=== PATIENT | female | born 1955 | race Caucasian/White ===

== ENCOUNTER → 2016-03-16 | Outpatient (CLI) | payer OTHER ==
[2016-03-16 13:46] LABS: HEMOGLOBIN A1C 7.65 % (4.2-6.0); MEAN BLOOD GLUCOSE (CALC) 168.745 mg/dL
[2016-03-16 13:47] LABS: CREATININE, URINE 80.3 MG/DL (15-500)
== END ==
LOC: LAB 12:47
PROVIDERS: ATTEND Internal Medicine
DX: E11.9 Type 2 diabetes mellitus without complications (principal); Z79.4 Long term (current) use of insulin
CPT/HCPCS: 36415; 82043; 83036

== ENCOUNTER → 2016-04-29 | Outpatient (CLI) | payer OTHER ==
--- NOTE | 2016-04-29 16:19 | DI ---
PA /LATERAL CHEST X-RAY, 04/29/2016 3:38 PM : Clinical History: Anterior chest pain over the xiphoid. Previous Exam: 11/26/2015. There is no acute soft tissue or bony abnormality. Heart size is normal. Lungs are clear. Mediastinal structures are normal. There are no pulmonary nodules. Reading: Normal chest x-ray. There has been no interval change.
== END ==
LOC: MOB RAD 14:56
PROVIDERS: ATTEND Nurse Practitioner
DX: R07.89 Other chest pain (principal); H92.02 Otalgia, left ear; W00.0XXA Fall on same level due to ice and snow, initial encounter
CPT/HCPCS: 71020

== ENCOUNTER → 2016-05-06 | Outpatient (CLI) | payer OTHER | LOC: MMPC 09:00 | PROVIDERS: ATTEND Nurse Practitioner Family | DX: L23.9 Allergic contact dermatitis, unspecified cause (principal) | CPT/HCPCS: 99213; G0463 ==

== ENCOUNTER → 2016-06-16 | Outpatient (CLI) | payer OTHER ==
[2016-06-16 12:14] LABS: HEMOGLOBIN A1C 6.73 % (4.2-6.0)
[2016-06-16 12:27] LABS: CREATININE, URINE 72.2 MG/DL (15-500)
== END ==
LOC: LAB 11:47
PROVIDERS: ATTEND Internal Medicine
DX: E11.9 Type 2 diabetes mellitus without complications (principal); Z79.4 Long term (current) use of insulin; E03.9 Hypothyroidism, unspecified; K31.84 Gastroparesis; G89.29 Other chronic pain; Z96.651 Presence of right artificial knee joint
CPT/HCPCS: 36415; 82043; 83036; 99214; G0463

== ENCOUNTER → 2016-07-27 | Outpatient (CLI) | payer OTHER | LOC: MMPC 11:11 | PROVIDERS: ATTEND Nurse Practitioner | DX: G47.33 Obstructive sleep apnea (adult) (pediatric) (principal) | CPT/HCPCS: 99213; G0463 ==

== ENCOUNTER 2016-08-07 08:18 | Emergency (ER) | payer OTHER ==
[2016-08-07] MEDS ORDERED: Sodium Chloride 0.9% 1,000 ML PRIMARY IV ONE (08:30)
[2016-08-07] MEDS ORDERED: ONDANSETRON 4 MG/2 ML VIAL IVP ONE (08:30)
[2016-08-07] MEDS ORDERED: Pantoprazole Inj 40 MG in Normal Saline Flush 10 ML IVP ONE (08:30)
[2016-08-07] MEDS ORDERED: NORMAL SALINE 10 ML SYRINGE FLUSH IVP PRN (08:30)
--- NOTE | 2016-08-07 08:38 | PDOC ---
Abdomen/Flank HPI - General Chief Complaint: Nausea / Vomiting / Diarrhea Stated Complaint: diarrhea Date Seen by Provider: 08/07/16 Time Seen by Provider: 08:25 Source: POSITIVE: Patient Exam Limitations: POSITIVE: No limitations Nurse's Notes Reviewed & Considered: Yes - History of Present Illness Initial Comments: The patient is a 61-year-old female who presents to the emergency department with complaints of diarrhea and abdominal pain. She states that she had onset of diarrhea on Tuesday of last week. 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 Her diarrhea continued and she contacted their office again yesterday. They recommended that if she had continued diarrhea and abdominal pain that she should be evaluated in the emergency room. She has a history of gastroparesis as well as hiatal hernia and some type of colitis by her account. She states that she has had frequent liquid stool especially if she tries to eat or drink anything. She also has increased abdominal pain which is mostly in the epigastric region with cramping lower abdominal pain as well. She also has some pain that radiates through to her back. She denies blood in the stool and has not had any nausea or vomiting. She denies urinary symptoms. She has not had any fever that she is aware of. She has been drinking fluids however they seem to be going right through her. She has had previous cholecystectomy 20 years ago, appendectomy at age 13 and a complete hysterectomy. - Patient Home Medications Home Medications: Home Medications Incontinence Pad,Liner,Disp [Poise Pads] 1 each PRN #1 box 05/08/12 Cpap 1 unit FELICITAS QHS #1 unit 11/11/14 Diclofenac Sodium [Voltaren] 2 gm TOPICAL QID tube 06/10/15 Oxybutynin Chloride [Oxybutynin Chloride ER] 1 tab PO QD #90 tab 08/25/15 Meloxicam 1 tab PO DAILY #90 tab 09/02/15 Ibuprofen 1 tab PO QPM PRN #0 tab 10/16/15 Insulin Aspart [Novolog Flexpen] 3 - 16 unit SUBCUT ACHS #0 unit 10/21/15 [place], Insulin Disposable [Novofine 32] 1 each 5XD #150 unit 11/06/15 Blood-Glucose Meter [Onetouch Ultra2] 1 each TID #100 unit 11/20/15 Blood Sugar Diagnostic [Blood Glucose Test Strip] 1 each MC TID #100 strip 11/26 Lancets [Onetouch Lancets] 1 each MC BID #100 each 11/27/15 Lact Cmb2/S.thermophl/Bif Cmb1 [Vsl#3 Capsule] 1 each PO QPM cap 12/31/15 Clonazepam 1 tab PO BID #180 tab 01/02/16 Estradiol [Vagifem] 10 mcg VAGINAL 2XW #3 box 01/02/16 Linagliptin [Tradjenta] 5 mg PO DAILY #30 tab 01/13/16 Sumatriptan Succinate 1 tab PO QD PRN #6 tab 02/27/16 Linaclotide [Linzess] 145 mcg PO DAILY cap 03/16/16 Risperidone 0.5 mg PO BID #60 tab 03/16/16 Lisinopril 1 tab PO DAILY #90 tab 05/05/16 Ropinirole HCl [Requip Xl] 2 mg PO QHS #90 tab 05/05/16 Triamcinolone Acetonide 1 applic TP BID PRN #15 gm 05/06/16 Gabapentin 1 cap PO TID #90 cap 06/07/16 Loratadine [Allergy] 1 tab PO DAILY #90 tab 06/07/16 Zolpidem Tartrate 5 mg PO DAILY #90 tab 06/07/16 Cyclobenzaprine HCl 1 tab PO TID #270 tab 06/16/16 Duloxetine HCl 1 cap PO BID #180 cap 06/16/16 Furosemide 1 tab PO DAILY #90 tab 06/16/16 Metformin HCl 1 tab PO BID #180 tab 06/16/16 Morphine Sulfate [Morphine Sulfate Cr] 1 tab PO Q12H #60 tab 06/16/16 Oxycodone HCl 1 tab PO Q6H PRN #120 tab 06/16/16 Pantoprazole Sodium 1 tab PO BID #180 tab 06/16/16 Potassium Chloride 1 tab PO QD #90 tab 06/16/16 Simvastatin 1 tab PO QHS #90 tab 06/16/16 Insulin Detemir [Levemir Flextouch] 20 unit SQ QHS #4 vial 07/27/16 Levothyroxine Sodium [Synthroid] 1 tab PO DAILY #90 tab 07/27/16 - Patient Allergies Allergies/Adverse Reactions: Allergies Allergy/AdvReac Type Severity Reaction Status Date / Time latex Allergy Intermediate NOT Unverified 08/07/16 08:35 APPLICABLE adhesive Allergy Mild rash Unverified 08/07/16 08:35 Penicillins Allergy Mild RASH Unverified 08/07/16 08:35 ADHESIVES Allergy Intermediate RASH Uncoded 07/27/16 16:02 silver *RETIRED-12/16/14 Allergy Unknown NOT Uncoded 07/27/16 16:02 APPLICABLE silver AdvReac Unknown NOT Uncoded 08/07/16 08:35 APPLICABLE Past Medical History - heen HEENT History: Denies History, Other (please comment) Additional HEENT History: WEARS GLASSES Cardiovascular History: Hypertension, Hyperlipidemia Additional Cardiovasular History: 1ST DEGREE HEART BLOCK Respiratory History: Sleep Apnea, Home CPAP Use Additional Respiratory History: WEARS CPAP Gastrointestinal History: GERD, Irritable Bowel Syndrome Additional Gastrointestinal History: CONSTIPATION/ HEMORRHOIDS Genitourinary History: Recurrent UTI, Incontinence Endocrine History: Type 2 Diabetes (insulin), Hypothyroidism Musculoskeletal History: Arthritis, Fibromyalgia, Back Pain, Back Injury Prosthesis or Implant: Yes (RIGHT TOTAL KNEE) Neurological History: Parkinson's, Migraines, Motion Sickness Blood Disorders: Denies History Psychiatric History: Depression, Anxiety Disorders History of Sexually Transmitted Diseases: No Cancer History: Denies History History of MDRO: No History of Other Communicable Diseases: No Alcohol Use: None Substance Use Type: None, Opiate Pain Medication Previous Surgical History: Yes Type / Date of Surgery: APPY/ BLADDER SX/ CTR/ GABO/ HYST/ OOPHORECTOMY/ RIGHT KNEE SCOPE/RIGHT TOTAL KNEE/ RHIZOTOMY/ TONSILLECTOMY/ COLONOSCOPY/EGD Anesthesia Reactions: No Malignant Hyperthermia: No Significant Family History: Heart disease, COPD, Hypertension Past Medical History Reviewed: Reviewed - No Changes ROS - Limitations ROS Limitations: No Limitations Constitution: REPORTS: Chills. DENIES: Fever Cardiovascular: REPORTS: Denies Cardiac Symptoms Respiratory: REPORTS: Denies Resp Symptoms Neurological: REPORTS: Denies Neuro Symptoms Gastrointestinal: REPORTS: Abdominal Pain, Diarrhea. DENIES: Vomitting, Black Stools, Bloody Stools, Constipation Endocrine: REPORTS: Other (Weak in general) Musculoskeletal: REPORTS: Denies MS Symptoms Genitourinary: REPORTS: Denies Symptoms Eyes: REPORTS: Denies Symptoms ENT: REPORTS: Denies Symptoms Skin: DENIES: Rash Abdominal/Flank Pain PE - General Appearance General Appearance: POSITIVE: Alert, Cooperative, No Acute Distress - HEENT HEENT: POSITIVE: Head Inspection Nml, Eyes Inspection Nml, Nose Inspection Nml, Pharynx Inspect. Nml, Dry Mucous Membranes - Neck Neck: POSITIVE: Normal Inspection. NEGATIVE: Lymphadenopathy - Respiratory Respiratory: POSITIVE: No Respiratory Distress, Breath Sounds Normal - Cardiovascular Cardiovascular: POSITIVE: Regular Rate and Rhythm, Heart Sounds Normal Peripheral Pulses: Dorsalis-pedis (R): 2+, Dorsalis-pedis (L): 2+ - Abdomen Abdomen: Soft: (All Quadrants), Normal Bowel Sounds: (All Quadrants), No Distention: (All Quadrants) Additional Abdominal Details: She does have tenderness primarily in the epigastric as well as right lower abdomen, no guarding or rebound tenderness, no palpable mass - Back Back: NEGATIVE: CVA Tenderness (R), CVA Tenderness (L) - Skin Skin: POSITIVE: Intact, No Rash - Extremities Extremity: Normal ROM: (All Extremities), Normal Inspection: (All Extremities) Abdomen Progress - Results Reviewed by me Lab Results:: Laboratory Results 08/07/16 Range/Units 08:44 WBC 5.76 (4.8-10.8) 10^3/uL RBC 4.58 (4.20-5.40) 10^6/uL Hgb 12.9 (12.0-16.0) g/dL Hct 38.0 (37.0-47.0) % MCV 83.0 (81-99) FL MCH 28.2 (27-31) PG MCHC 33.9 (33-37) g/dL RDW Std Deviation 38.4 L (39-50) fL RDW Coeff of Asif 12.9 (11.5-14.5) % Plt Count 315 (140-350) 10*3/uL MPV 8.5 (7.4-12.2) FL Immature Gran % (Auto) 0.2 (0-5) % Neut % (Auto) 62.0 (50-80) % Lymph % (Auto) 29.2 (10-50) % [place] % (Auto) 6.4 (5-15) % Eos % (Auto) 1.9 (0-8) % Baso % (Auto) 0.3 (0-1) % Immature Gran # (Auto) 0.01 10*3/UL Neut # (Auto) 3.57 10*3/UL Lymph # (Auto) 1.68 10*3/uL [place] # (Auto) 0.37 (0.3-0.8) 10*3/UL Eos # (Auto) 0.11 10*3/UL Baso # (Auto) 0.02 10*3/UL WBC Morphology Comment Normal morphology (NORM) Plt Morphology Comment Normal morphology (NORM) RBC Morph Comment Normal morphology (NORM) - Patient's Progress MDM / ED Course: An IV was established and she received a 1 L bolus of normal saline. She also received Zofran 4 mg IV and Protonix 40 mg IV. Lab work, stool studies, urinalysis and CT scan of the abdomen and pelvis are ordered and are pending. Patient care is transferred to Dr. Edward at 9:00 AM. Patient Care Time - Estimated PCT Patient Care Time (In Minutes): 15 Vital Signs - VS Reviewed Vital Signs Reviewed: Yes (written nursing documentation reviewed) Discharge Clinical Impression: Abdominal pain, Diarrhea Condition: Fair
[2016-08-07 08:51] LABS: BASOPHILS # (AUTO) 0.02 10*3/UL; BASOPHILS % (AUTO) 0.3 % (0-1); EOSINOPHILS # (AUTO) 0.11 10*3/UL; EOSINOPHILS % (AUTO) 1.9 % (0-8); HEMOGLOBIN 12.9 g/dL (12.0-16.0); LYMPHOCYTES # (AUTO) 1.68 10*3/uL; MEAN CORPUSCULAR HEMOGLOBIN 28.2 PG (27-31); MEAN CORPUSCULAR HGB CONC 33.9 g/dL (33-37); MEAN PLATELET VOLUME 8.5 FL (7.4-12.2); MONOCYTES # (AUTO) 0.37 10*3/UL (0.3-0.8); MONOCYTES % (AUTO) 6.4 % (5-15); NEUTROPHILS # (AUTO) 3.57 10*3/UL; RED BLOOD COUNT 4.58 10^6/uL (4.20-5.40)
[2016-08-07 08:57] LABS: PLATELET MORPHOLOGY COMMENT NORMAL MORPHOLOGY (NORM); RBC MORPHOLOGY COMMENT NORMAL MORPHOLOGY (NORM); WBC MORPHOLOGY COMMENT NORMAL MORPHOLOGY (NORM)
[2016-08-07 09:05] LABS: BLOOD UREA NITROGEN 5 mg/dL (7-22); BUN/CREATININE RATIO 8.33 (6-20); C-REACTIVE PROTEIN 5.1 mg/dL (0.0-0.9); CALCIUM 8.9 mg/dL (8.7-10.7); EST GLOMERULAR FILTRATION > 60 (>60 ml/min/1.73m(2)); LIPASE 34 IU/L (23-300); MAGNESIUM 1.6 mg/dL (1.6-2.4)
--- NOTE | 2016-08-07 09:10 | PDOC ---
Transfer of Care - Care Accepted Time Care Transferred: 09:08 Report from Transferring Physician Received: Yes MDM / ED Course: I received care of Ms Gurjit Mary from Dr Woodruff, pending results of an abdominal CT scan, labs, and symptom control. For further details, please see his H+P from this same date. Home Medications: Home Medications Incontinence Pad,Liner,Disp [Poise Pads] 1 each MC PRN #1 box 05/08/12 Cpap 1 unit FELICITAS QHS #1 unit 11/11/14 Diclofenac Sodium [Voltaren] 2 gm TOPICAL QID tube 06/10/15 Oxybutynin Chloride [Oxybutynin Chloride ER] 1 tab PO QD #90 tab 08/25/15 Meloxicam 1 tab PO DAILY #90 tab 09/02/15 Ibuprofen 1 tab PO QPM PRN #0 tab 10/16/15 Insulin Aspart [Novolog Flexpen] 3 - 16 unit SUBCUT ACHS #0 unit 10/21/15 [place], Insulin Disposable [Novofine 32] 1 each MC 5XD #150 unit 11/06/15 Blood-Glucose Meter [Onetouch Ultra2] 1 each MC TID #100 unit 11/20/15 Blood Sugar Diagnostic [Blood Glucose Test Strip] 1 each MC TID #100 strip 11/26 Lancets [Onetouch Lancets] 1 each MC BID #100 each 11/27/15 Lact Cmb2/S.thermophl/Bif Cmb1 [Vsl#3 Capsule] 1 each PO QPM cap 12/31/15 Clonazepam 1 tab PO BID #180 tab 01/02/16 Estradiol [Vagifem] 10 mcg VAGINAL 2XW #3 box 01/02/16 Linagliptin [Tradjenta] 5 mg PO DAILY #30 tab 01/13/16 Sumatriptan Succinate 1 tab PO QD PRN #6 tab 02/27/16 Linaclotide [Linzess] 145 mcg PO DAILY cap 03/16/16 Risperidone 0.5 mg PO BID #60 tab 03/16/16 Lisinopril 1 tab PO DAILY #90 tab 05/05/16 Ropinirole HCl [Requip Xl] 2 mg PO QHS #90 tab 05/05/16 Triamcinolone Acetonide 1 applic TP BID PRN #15 gm 05/06/16 Gabapentin 1 cap PO TID #90 cap 06/07/16 Loratadine [Allergy] 1 tab PO DAILY #90 tab 06/07/16 Zolpidem Tartrate 5 mg PO DAILY #90 tab 06/07/16 Cyclobenzaprine HCl 1 tab PO TID #270 tab 06/16/16 Duloxetine HCl 1 cap PO BID #180 cap 06/16/16 Furosemide 1 tab PO DAILY #90 tab 06/16/16 Metformin HCl 1 tab PO BID #180 tab 06/16/16 Morphine Sulfate [Morphine Sulfate Cr] 1 tab PO Q12H #60 tab 06/16/16 Pantoprazole Sodium 1 tab PO BID #180 tab 06/16/16 Potassium Chloride 1 tab PO QD #90 tab 06/16/16 Simvastatin 1 tab PO QHS #90 tab 06/16/16 Insulin Detemir [Levemir Flextouch] 20 unit SQ QHS #4 vial 07/27/16 Levothyroxine Sodium [Synthroid] 1 tab PO DAILY #90 tab 07/27/16 Oxycodone HCl 5 mg PO Q4H PRN 08/07/16 Allergies/Adverse Reactions: Allergies latex Allergy (Intermediate, Unverified 08/07/16 08:35) NOT APPLICABLE adhesive Allergy (Mild, Unverified 08/07/16 08:35) rash Penicillins Allergy (Mild, Unverified 08/07/16 08:35) RASH ADHESIVES Allergy (Intermediate, Uncoded 07/27/16 16:02) RASH silver *RETIRED-12/16/14 Allergy (Unknown, Uncoded 07/27/16 16:02) NOT APPLICABLE silver Adverse Reaction (Unknown, Uncoded 08/07/16 08:35) NOT APPLICABLE from a bladder sling Vital Signs Reviewed: Yes - Pending Patient Care Items Pending Patient Care Items: POSITIVE: Labs, Pain Control, CT / MRI Results - Expected Patient Outcome Tentative Impression of Patient: She looks relatively comfortable with normal and stable vital signs, no acute distress Expected Disposition: POSITIVE: Home - Re-Evaluation of Patient Re-Examine Time:: 10:20 (Pt feels well. OK with controlling symptoms at home and following up with GI in 2 days.) Disposition of Patient: POSITIVE: Discharged Pending Test Results Documented: Yes (CT scan showed no obstruction. Bowel wall inflammation was seen.) - Results Reviewed Lab Results Reviewed by Me: Yes Lab Results: Laboratory Results 08/07/16 Range/Units 08:44 WBC 5.76 (4.8-10.8) 10^3/uL RBC 4.58 (4.20-5.40) 10^6/uL Hgb 12.9 (12.0-16.0) g/dL Hct 38.0 (37.0-47.0) % MCV 83.0 (81-99) FL MCH 28.2 (27-31) PG MCHC 33.9 (33-37) g/dL RDW Std Deviation 38.4 L (39-50) fL RDW Coeff of Asif 12.9 (11.5-14.5) % Plt Count 315 (140-350) 10*3/uL MPV 8.5 (7.4-12.2) FL Immature Gran % (Auto) 0.2 (0-5) % Neut % (Auto) 62.0 (50-80) % Lymph % (Auto) 29.2 (10-50) % [place] % (Auto) 6.4 (5-15) % Eos % (Auto) 1.9 (0-8) % Baso % (Auto) 0.3 (0-1) % Immature Gran # (Auto) 0.01 10*3/UL Neut # (Auto) 3.57 10*3/UL Lymph # (Auto) 1.68 10*3/uL [place] # (Auto) 0.37 (0.3-0.8) 10*3/UL Eos # (Auto) 0.11 10*3/UL Baso # (Auto) 0.02 10*3/UL WBC Morphology Comment Normal morphology (NORM) Plt Morphology Comment Normal morphology (NORM) RBC Morph Comment Normal morphology (NORM) Sodium 134 L (135-145) meq/L Potassium 3.5 L (3.8-5.2) meq/L Chloride 101 (98-112) meq/L Carbon Dioxide 20 L (23-33) meq/L Anion Gap 13 (5-20) BUN 5 L (7-22) mg/dL Creatinine 0.6 (0.50-1.20) mg/dL Estimated GFR > 60 (>60 ml/min/1.73m(2)) BUN/Creatinine Ratio 8.33 (6-20) Glucose 241 H (78-110) mg/dL Calculated Osmolality 282.0 (267-292) mOsm/kg Calcium 8.9 (8.7-10.7) mg/dL Magnesium 1.6 (1.6-2.4) mg/dL Total Bilirubin 0.3 (0.3-1.2) mg/dL AST 29 (8-39) IU/L ALT 25 (9-52) IU/L Alkaline Phosphatase 128 H (38-126) IU/L C-Reactive Protein 5.1 H (0.0-0.9) mg/dL Total Protein 7.1 (6.1-8.0) g/dL Albumin 4.0 (3.5-4.8) g/dL Globulin 3.1 (2.50-4.10) g/dL Albumin/Globulin Ratio 1.20 L (1.3-2.0) mg/g Amylase 39 (30-110) U/L Lipase 34 (23-300) IU/L Patient Care Time - Estimated PCT Patient Care Time (In Minutes): 20 Vital Signs - Recent Vital Signs Vital Signs: Vital Signs (Last 8 hours) Temp Pulse Resp BP Pulse Ox 08/07/16 08:18 97.9 F 86 16 150/80 92 - VS Reviewed Vital Signs Reviewed: Yes Discharge Clinical Impression: Nausea and vomiting, Diarrhea Discharge Disposition: Discharged to Home Condition: Fair Additional Instructions: Keep your appointment with the GI service in [place] on Tuesday. Your CT scan showed no obstruction or blockage. Your labs were all reassuring. Stay well hydrated at home. you can take a few doses of Immodium today and tomorrow, but don't take it for longer than that. Follow Up With: JI ZHENG [Primary Care Provider] -
[2016-08-07 09:47] VITALS: RESP 16; TEMP 97.9
--- NOTE | 2016-08-07 10:07 | DI ---
HISTORY: Abdominal pain with diarrhea for 3 days. History of gastroparesis. COMPARISON: CT of 11/26/2015 not available at the time of reporting. TECHNIQUE: Unenhanced images of the abdomen and pelvis were obtained and submitted for interpretatio n. FINDINGS: The visualized lung bases demonstrate no focal primary mass. Bibasilar atelectasis sugge sted. The gallbladder is been removed. Liver and spleen return a normal attenuation. Both kidneys and bot h adrenal glands demonstrate no acute findings. The pancreas is largely atrophied. The stomach is distended with fluid. The aorta and IVC demonstrate no acute findings. The great vessels appear suboptimally opacified. There is segmental thickening of the sigmoid colon. Recommend correlation with colonoscopy where obdulio ropriate. There is no free air or free fluid. The small bowel loops are not dilated. There is mode rate constipation. The appendix is not clearly identified. There are no secondary signs of appendic itis. The urinary bladder is partially distended. The uterus is not clearly identified. Recommend correla tion with pelvic ultrasound. The visualized osseous structures demonstrate no destructive abnormality. There is diffuse degenera tive change. IMPRESSION: 1. Bibasilar atelectasis suggested. 2. The gallbladder is been removed. 3. The pancreas is largely atrophied. 4. The great vessels appear suboptimally opacified. 5. There is segmental thickening of the sigmoid colon. Recommend correlation with colonoscopy where appropriate. 6. There is moderate constipation. 7. The urinary bladder is partially distended. The uterus is not clearly identified. Recommend kishore elation with pelvic ultrasound. 8. Diffuse degenerative change.
[2016-08-07 10:59] LABS: BILIRUBIN,URINE NEGATIVE (NEG); CLARITY,URINE CLEAR (CLEAR); COLOR,URINE YELLOW; GLUCOSE, URINE (UA) NEGATIVE (NEG); NITRATE,URINE NEGATIVE (NEG); OCCULT BLOOD,URINE Trace-lysed (NEG); PROTEIN,URINE NEGATIVE (NEG); UROBILINOGEN,URINE 0.2 EU/dL (0.2)
[2016-08-07 11:04] LABS: BACTERIA,URINE RARE; RBC,URINE 0-1 /hpf; SQUAMOUS EPITHELIAL CELL,UR FEW; URINE SAMPLE TYPE CLEAN CATCH URINE; WBC,URINE 0-1
== END 2016-08-07 10:41 | disposition home or self-care (01) ==
LOC: ER 08:18
DX: R19.7 Diarrhea, unspecified (principal); R10.13 Epigastric pain; R10.31 Right lower quadrant pain; E78.5 Hyperlipidemia, unspecified; K31.84 Gastroparesis; K44.9 Diaphragmatic hernia without obstruction or gangrene; K59.00 Constipation, unspecified; I10 Essential (primary) hypertension; E11.9 Type 2 diabetes mellitus without complications; Z79.4 Long term (current) use of insulin
CPT/HCPCS: 74177; 80053; 81001; 81003; 82150; 83690; 83735; 85025; 86140; 87046; 87328; 87329; 87493; 96361; 96374; 96375; 99283; J2405; J3490; J7030

== ENCOUNTER → 2016-08-08 | Outpatient (CLI) | payer OTHER | LOC: LAB 13:55 | PROVIDERS: ATTEND Emergency Medicine | DX: R10.84 Generalized abdominal pain (principal); R11.2 Nausea with vomiting, unspecified; Z98.890 Other specified postprocedural states | CPT/HCPCS: 36415; 82565; 84520 ==

== ENCOUNTER → 2016-09-15 | Outpatient (CLI) | payer OTHER ==
--- NOTE | 2016-09-15 15:44 | DI ---
CT HEAD SCAN WITHOUT IV CONTRAST, 09/15/2016 3:04 PM : Clinical History: Post concussion syndrome. Previous Exam: None at this facility. Scans are obtained from the foramen magnum to the vertex without IV contrast. The 4th, 3rd, and lateral ventricles are of normal size, shape, position, and contour for the patient 's age. There are no abnormal areas of increased or decreased density. Specifically, there is no evid ence of an acute intracranial hemorrhagic focus. There is mild cerebral atrophy appropriate for the p atient's age. There are no extracerebral mantles or shift of the midline structures. Bone window eval uation is normal. There is hyperostosis frontalis internis, a normal variant. The paranasal sinuses a re normal. READIN. Normal non contrast CT head scan. There is no evidence of an acute intracranial hemorrhagic focus . 2. Mild cerebral atrophy.
--- NOTE | 2016-09-15 15:55 | DI ---
CT CERVICAL SPINE SCAN, 09/15/2016 3:04 PM : Clinical History: Cervical radiculopathy due to trauma. Previous Exam: 12/14/2005. Scans are performed from T2 to the base of the skull without IV contrast. Sagittal and coronal reform atted images are generated. The vertebral bodies are of normal height and size. There is chronic disc space narrowing at C5-6 and minimally at C6-7. No fractures are identified. There is anterior subluxation of C3 on C4 and C4 on C5 by 1 mm and anterior subluxation of C5 on C6 by 2-3 mm. Severe degenerative arthritic change with spurring is present in the right C5-6 uncovertebral joint. Severe degenerative arthritic changes are present in all of the zygapophyseal joints bilaterally but most severely at C5-6 and C6-7 on the righ t side and C7-T1 on the left side. C1 articulates normally with C2 and the occiput. Prevertebral soft tissue planes are normal. High-resolution thin slices through the disc spaces show normal disc spaces at C2-3 through C4-5. The lower disc spaces are obscured by artifacts. READIN. There is no acute fracture or dislocation. There is anterior subluxation of C3 on C4 and C4 on C5 by 1 mm and anterior subluxation of C5 on C6 by 2-3 mm. These are all secondary to degenerative arth ritic disease. 2. Chronic disc space narrowing is present at C5-6 and C6-7. The most severe degenerative arthritic change in the uncovertebral joints is on the right side at C5-6. Severe degenerative arthritic diseas e is present on the right side in the zygapophyseal joints at C5-6 and C6-7 on the right side and at C7-T1 on the left side.
== END ==
LOC: CT 14:59
PROVIDERS: ATTEND Internal Medicine
DX: F07.81 Postconcussional syndrome (principal); M54.12 Radiculopathy, cervical region; E11.9 Type 2 diabetes mellitus without complications; Z79.4 Long term (current) use of insulin; Z02.89 Encounter for other administrative examinations; K31.84 Gastroparesis; W22.8XXA Striking against or struck by other objects, initial encounter; Y93.55 Activity, bike riding
CPT/HCPCS: 70450; 72125; 99215

== ENCOUNTER → 2016-10-21 | Outpatient (CLI) | payer OTHER ==
--- NOTE | 2016-10-21 21:16 | DI ---
MRI CERVICAL SPINE SCAN, 10/21/2016 1:03 PM: Clinical History: Cervical spinal stenosis. Previous Exam: 05/19/2015. Sequences: Sagittal T1and T2 weighted. Axial T2 PLUS and FE 3D DUAL. Coronal T1 scans through the upp er cervical spine. Motion artifacts are present on all sequences secondary to muscle spasms and conto ur by the patient during the study. Sequences were repeated with attempts at immobilization. The best sequences were retained. The vertebral bodies are of normal height and size. The disc spaces are of normal height and all cerv ical disc spaces show desiccation change. The cerebellar tonsils are in normal position. No definite cord abnormality is identified. The C2-3 through C4-5 disc spaces are normal. C5-6 has a bulging but not herniated disc. The AP diameter of the canal is mildly narrowed, similar to the last exam. There does not appear to be neural foraminal stenosis at this level. The disc spaces from C6-7 through T3-4 normal. Readin. Technically difficult examination because of muscular spasms experienced by the patient during th is exam. Extensive motion artifacts are present on every sequence and the best sequences were saved f or interpretation. 2. There is a bulging but not herniated disc at C5-6 causing mild AP diameter canal stenosis. Both n eural foraminal openings are felt to be normal. If a more definitive study is required to evaluate th e severity of stenosis, consider a CT myelogram of the cervical spine. 3. The C2-3 through C4-5 and C6-7 through T3-4 disc spaces are normal.
== END ==
LOC: MRI 12:57
PROVIDERS: ATTEND Internal Medicine
DX: M48.02 Spinal stenosis, cervical region (principal); M47.22 Other spondylosis with radiculopathy, cervical region
CPT/HCPCS: 72141

== ENCOUNTER 2017-12-12 05:52 | Inpatient (IN) ==
[~2017-12-12 05:52] MED LIST: Clindamycin 900mg (Premix) 900 MG/50 ML BAG IV ONE; LIDOCAINE W/ SODIUM BICARB 0.5 ML SYR ONE; Lactated Ringers 1,000 ML PRIMARY IV ONE; Sodium Chloride 0.9% 250 ML ONE; Vancomycin Inj 1gm vial ONE
[2017-12-12] MEDS ORDERED: Lactated Ringers 1,000 ML PRIMARY IV ONE ×2 (06:00→10:19)
[2017-12-12] MEDS ORDERED: ceFAZolin Inj 2gm (Premix) 2 GM/50 ML BAG IV ONE (06:00)
[2017-12-12] MEDS ORDERED: Clindamycin 900mg (Premix) 900 MG/50 ML BAG IV ONE (06:00)
[2017-12-12] MEDS ORDERED: LIDOCAINE W/ SODIUM BICARB 0.5 ML SYR SUBD ONE (06:00)
[2017-12-12] MEDS ORDERED: Nasal Sanitizer POPSWAB ampule 3 AMP (Nozin) PREOP DOSE ENOS SCH (06:00)
[2017-12-12] MEDS ORDERED: Propofol 1,000 MG/100 ML VIAL IV ONE ×2 (06:39→11:02)
[2017-12-12] MEDS ORDERED: REMIFENTANIL 1 MG/1 ML IV ONE ×3 (06:41→12:11)
[2017-12-12] MEDS ORDERED: fentaNYL Inj 250 MCG/5 ML VIAL ONE (06:42)
[2017-12-12] MEDS ORDERED: MIDAZOLAM 5 MG/1 ML ONE (06:42)
[2017-12-12] MEDS ORDERED: LIDOCAINE MPF 2% - 5 ML (20 MG/1 ML) ONE (06:42)
[2017-12-12] MEDS ORDERED: ONDANSETRON 4 MG/2 ML VIAL ONE (07:23)
[2017-12-12] MEDS ORDERED: SCOPOLAMINE HYDROBROMIDE 1.5 MG - 1 EACH PATCH TRANSDERM ONE (07:23)
[2017-12-12] MEDS ORDERED: Acetaminophen 1000mg Inj 1,000 MG/100 ML VIAL IV ONE (07:24)
[2017-12-12] MEDS ORDERED: PANTOPRAZOLE IV 40 MG VIAL ONE (07:24)
[2017-12-12] MEDS ORDERED: DEXAMETHASONE PF 10 MG/1 ML VIAL ONE (07:24)
[2017-12-12] MEDS ORDERED: Sodium Chloride 0.9% vial 10 ML ONE ×2 (08:18→12:00)
[2017-12-12] MEDS ORDERED: BUPIVACAINE 0.25% W/ EPI - 10 ML VIAL ONE ×2 (08:18→08:20)
[2017-12-12] MEDS ORDERED: BACITRACIN 50,000 UNIT VIAL IRRIG ONE ×2 (08:19→11:59)
[2017-12-12] MEDS ORDERED: PROPOFOL 10 MG/1 ML (200 MG/20 ML) VIAL IV ONE ×4 (08:32→12:47)
[2017-12-12] MEDS ORDERED: KETAMINE 100 MG/1 ML - 5 ML ONE (08:50)
[2017-12-12] MEDS ORDERED: Lactated Ringers 2,000 ML PRIMARY IV ONE (08:50)
[2017-12-12] MEDS ORDERED: ALBUTEROL SULFATE 8.5 GM HFA INHALER INH ONE (10:12)
[2017-12-12] MEDS ORDERED: HYDROmorphone 2 MG/1 ML ONE ×3 (10:32→14:09)
[2017-12-12] MEDS ORDERED: fentaNYL Inj 100 MCG/2 ML VIAL IVP PRN (11:44)
[2017-12-12] MEDS ORDERED: ONDANSETRON 4 MG/2 ML VIAL IVP PRN ×2 (11:44→15:43)
[2017-12-12] MEDS ORDERED: LIDOCAINE W/ SODIUM BICARB 0.5 ML SYR SUBD PRN (11:44)
[2017-12-12] MEDS ORDERED: Prochlorperazine Edisylate Inj 10mg/2ml vial IVP PRN ×2 (11:44→15:43)
--- NOTE | 2017-12-12 13:23 | GEN.OPNOTE ---
Operative Note Surgery Date: 12/12/17 Preoperative Diagnosis: Neck pain. C3-4 pseudofusion. Failed anterior cervical hardware Postoperative Diagnosis: Same Procedure: 1.) Removal of hardware (C3-C7 anterior cervical plating). 2.) Removal of C3-4 intervertebral cage. 3.) Partial corpectomy C3. 4.) Insertion of 9mm x 16mm x 14 mm Tritanium C anterior cervical cage filled in the center with DBM into the partial C3 corpectomy site/C3-4 intervertebral space. 5.) Anterior cervical plating using a two level, 6 hole, 37 mm Walsh Aviator anterior cervical plate affixed to the C3 vertebral body using 4.0 mm x 16 mm variable angle titanium anterior cervical screws, to the C4 vertebral body using 4.35 mm x 16 mm variable angle titanium anterior cervical screws, and to the 4.35 mm x 14 mm variable angle titanium anterior cervical screws. 6.) Use of 1cc of Zi BIO DBM Putty Plus with cancellous chips. 7.) Use of the intra-operative microscope for the microsurgical techniques used for the partial C3 arthrodesis and redo C3-4 arthrodesis. 8.) Use of intra-operative fluoroscopy for localization of correct surgical level and for confirmation of the final position of the the C3-4 anterior cervical cage and anterior cervical hardware elements. 9.) Use of intra-operative neuromonitoring to access sensory and motor functions during the procedure. Surgeon: Jasper Blackwell MD Vice President Biostatistics: [email or web address] Lopez Anesthesia Provider: Neri Loving CRNA Anesthesia Type: General Estimated Blood Loss (mL): 100 Fluids: See anesthesia record Pathology: None Indications: See admission diagnosis Findings: 1.) Pseudofusion C3-4. 2.) Partial pulling out of C3 anterior cervical screws. 3.) Partial backing out (from plate) of left C3 anterior cervical screw. Complications: None Operative Summary: Ms. Gurjit Mary was met in the preoperative area. Her surgical history and physical was updated. The procedure to be performed was confirmed with this night. Ms. Gurjit Mary and she was in agreement on the procedure and this matched was written on the patient's consent form. Any questions that she had were answered before she was taken back to the operating room suite. Ms. Maribell Mary was brought back to the operating room suite. She was moved over onto the operative table in the supine position. She was put under general anesthesia and intubated by the anesthesia staff. She had a Lipscomb catheter placed or bladder for the procedure. She had pneumatic compression hose placed on her lower legs bilaterally. A rolled up surgical towel was placed between her shoulder blades and another one rested underneath the nape of her neck. Her head rested in a gel ring. Her arms were well-padded and tucked at her sides. All bony prominences were well-padded. Her Lipscomb catheter was checked be free from kinks. Her pneumatic compression hose was attached and pneumatic compression device. Ms. Mary's previous incision was demarcated with a skin marker. She was prepped and draped in the usual and standard fashion. She was given 900 mg of Cleocin and 1 g of vancomycin IV for perioperative antibiosis. She was given 10 mg of Decadron IV. A standard surgical timeout was performed identifying the correct patient, the patient's symptoms, the correct procedure, and the correct equipment being available for the procedure. The intended skin incision was injected subcutaneously with quarter percent Marcaine with 1 in 200,000 epinephrine. 7 mL of local anesthetic was used. Her previous incision was opened with a 10 blade scalpel and all dermal and superficial bleeding points were controlled with bipolar cautery. Dissection was continued down through the subcutaneous tissue and scar tissue from her previous surgery down to the platysmal muscle. The platysmal muscle was opened in the direction of the skin incision with the Metzenbaum scissors. This allowed identification of the medial border of the sternocleidomastoid muscle. Further dissection medial to the omohyoid muscle. The omohyoid muscle was circumferentially dissected out packed with 2 silk sutures and then cut with the muscle stones being retracted with the silk suture attached to snaps. Dissection was then continued sharp and blunt fashion down to the prevertebral fascia. The carotid artery was palpated to the lateral to the dissection plane. The prevertebral fascia was dissected with a Kitner instrument. The patient's plate was identified underneath. The C3-C7 anterior cervical plate was dissected out with a Kitner instrument as well as with Bovie cautery with an insulated tip turned down to a low setting. On inspection it was noted that the C3 anterior cervical screw on the left was partially backed out of the cervical plate by approximately 3 mm. It was also noted that both C3 anterior cervical screws were partially pulled out of the vertebral body and that the plate was not flush with the C3 vertebral body but rather approximately 3 mm away from the vertebral body. The locking mechanism was then undone over each of the screw heads at each level bilaterally. The C3, C4, C5, C6, and C7 anterior cervical screws were all then all removed bilaterally. The C3 screws did not have good purchase all of the other screws however did have reasonable bony purchase. The C3-C7 Zi aviator plate was then removed. The cervical spine was then inspected. There was no movement noted between the C4-C5, and C5-C6, and C6-7 interspaces on gently pushing on the vertebral bodies with a bone tamp. There clearly was however motion at the C3-4 interspace. The medial aspect of the longus coli muscle was dissected from C3-4 C4 bilaterally using Bovie cautery with an insultated tip. The [facility] self retaining retractor system was placed at the C3-4 level for the exposure of this level and the protection of the soft tissue at this level. The C3-4 anterior cervical cage was then carefully dissected out from its scar tissue attachments to the surrounding bone structures. The anterior cervical cage was then removed. The C3-4 interspace was then inspected. Clearly the C3- 4 anterior cervical cage had partially subsided into the inferior aspect of the C3 vertebral body however on inspecting the bone adjacent to this, the upper part of the C3 vertebral body, the bone was still hard. Lateral fluoroscopic images were then obtained. The C3 intervertebral cage had not only subsided into the inferior aspect of the C3 vertebral body with the superior aspect of the C4 vertebral body as well. Because the bone remaining at C3 and the bone remaining at C4 on inspection still appeared of reasonable quality and to be hard bone was decided to perform a partial corpectomy of C3 rather than a complete corpectomy of C3 because it was felt that a corpectomy cage spanning from the inferior aspect of C2 down to the remaining aspect of the C4 vertebral body would have a high likelihood of subsiding into the remaining aspect of the C4 vertebral body. It was felt that with a partial C3 corpectomy with re-arthrodesis of the C3-4 interspace and the placement of the larger anterior cervical cage would not put so much stress on the remaining C4 vertebral body and would be less prone to failure then a C3 corpectomy cage. The operative microscope was brought into the surgical field and used for the microsurgical techniques for the partial inferior C3 corpectomy and the re- arthrodesis of the C3-4 interspace which was performed with a high-speed Get [employer] drill with a matchstick bit. The interspace was then sized the appropriate size anterior cervical cage. A 9 mm x 16 mm x 14 mm tri-caning C titanium anterior cervical cage was selected and filled in the center with Zi bio DBM putty plus plus with cancellous chips and inserted into the partial C3 corpectomy site/re-arthrodesed C3 4 interspace and was then gel gently countersunk with a bone tamp and mallet. The cage appeared obtained good purchase between the adjacent C3 and adjacent C4 vertebral body bone. Soft tissue was removed over the remaining anterior superior aspect of the C3 vertebral body using Bovie cautery. The anterior aspect of the remaining C4 vertebral body was prepared by removing scar tissue and also drilling down some of the bone so the anterior cervical plate would fit flush. Because the C4-5 C5-6 and C6-7 interspaces demonstrated no motion on inspection , it was felt that these levels did not need to be re-plated. However because the C4 vertebral body screw tracts were going to be reused it was felt that two levels of purchase for the plate below the C3-4 interspace would be best and therefore a 2 level, 6-hole, 37 mm Zi Aviator titanium anterior cervical plate was selected and affixed to the C3 vertebral body using 4.0 mm x 16 mm variable angle titanium anterior cervical screws, to the C4 vertebral body using 4.35 mm x 16 mm variable angle titanium anterior cervical screws, and to the C5 vertebral body using 4.35 mm x 14 mm variable angle titanium screws. All screws obtained excellent purchase in the a.m. vertebral body bone. The locking mechanism and this was then deployed at each level using visual inspection to assure that the locking mechanism fully deployed across each screw at each level bilaterally. Final AP and lateral fluoroscopic images were obtained. The surgical site was then copiously irrigated with bacitracin irrigation. The galdamez of the dissection plane were inspected for any bleeding points. Any identified were coagulated with bipolar cautery. The surgical site was again irrigated with bacitracin irrigation with the irrigating allowed to sit for inspection of any further bleeding points with none being identified. The closure portion of the procedure was begun. A medium LORENZO drain was placed into the surgical site. The omohyoid muscle was reapproximated with 3-0 Vicryl suture in a interrupted fashion. The platysma muscle was reapproximated with 3-0 Vicryl suture in an interrupted fashion. The dermis and superficial subcutaneous tissue was reapproximated with 3-0 Vicryl suture in an inverted interrupted fashion. The final layer of closure was performed with 4-0 Monocryl in a running subcuticular fashion. Rates her were removed from this number Tyra. She was some awoken and extubated by the anesthesia staff. She was moved over onto the PACU stretcher. She was taken to the recovery room in stable condition. All surgical counts reported as correct unscrubbed and circulating personnel. A physician's addictions counselor assistant, Ms. Seble Franz PA-C, assisted with the procedure including exposure and closure portions of the procedure. She also provided irrigation and suctioning and retraction throughout the procedure.
--- NOTE | 2017-12-12 13:40 | CRNA.PROGR ---
Anesthesia Time - Procedure/Recovery Time Start Date: 12/12/17 End Date: 12/12/17 Anesthesia : Time In: 07:46 Anesthesia : Time Out: 13:32 Anesthesia : Total Time: 346 - Total Anesthesia Time Total Anesthesia Time (minutes): 346 - Other Weight: 102.058 kg Height: 5 ft 4 in Body Mass Index (BMI): 38.6 Physical Status: P3 Anesthesia Type: General Anesthesia : ET
--- NOTE | 2017-12-12 13:46 | CRNA.PROGR ---
Anesthesia Recovery Phase I - Post Anesthesia Evaluation Patient's Condition on Arrival in Phase I: Stable Pain Level: 1
[2017-12-12] MEDS ORDERED: DIAZEPAM 10 MG/2 ML (5 MG/1 ML) CARPUJECT ONE (14:02)
[2017-12-12] MEDS: DIAZEPAM 10 MG/2 ML (5 MG/1 ML) CARPUJECT IVP SCH ×2 (14:13→16:00)
[2017-12-12] MEDS: HYDROmorphone 2 MG/1 ML IVP PRN ×3 (14:28→22:03)
[2017-12-12] MEDS ORDERED: CALCIUM CHLORIDE 10% (100 MG/1 ML) - 10 ML SYRINGE IV ONE (15:32)
[2017-12-12] MEDS ORDERED: MAGNESIUM 400 MG/5 ML - 30 ML (MILK OF MAGNESIA) PO PRN (15:43)
[2017-12-12] MEDS ORDERED: MAGNESIUM CITRATE 296 ML SOLUTION PO PRN (15:43)
[2017-12-12] MEDS ORDERED: DOCUSATE 100 MG CAPSULE PO PRN (15:43)
[2017-12-12] MEDS ORDERED: Vancomycin-PHA to Dose IV SCH (15:43)
[2017-12-12] MEDS ORDERED: BISACODYL 5 MG TABLET PO PRN (15:43)
[2017-12-12] MEDS ORDERED: Fleet Enema 133ml RECTAL PRN (15:43)
[2017-12-12] MEDS ORDERED: PROMETHAZINE 25 MG/1 ML VIAL IM PRN (15:43)
[2017-12-12] MEDS ORDERED: Ondansetron ODT Tab 4 MG TAB PO PRN (15:43)
[2017-12-12] MEDS ORDERED: Metoclopramide Inj 10 MG/2 ML VIAL IVP PRN (15:43)
--- NOTE | 2017-12-12 15:55 | NEURO.PROG ---
Subjective Post Op Day: 0 Pain Management: IV Lipscomb Catheter: Yes Diet: Regular Ambulating: No Additional Details: Patient just arrived from on medical/surgical floor from PACU where I evaluated her earlier. Awake, alert, and oriented. Conversant. Moving all extremities well bilaterally. Her fingers and toes are numb which is baseline for her. Cervical collar in place. Posterior cervicothoracic instrumented fusion planned for Tuesday. Objective : Data - Vital Signs Vital Signs and I&O: Vital Signs - Last Taken Temperature 97.8 F 12/12/17 07:00 Pulse Rate 89 12/12/17 07:00 Respiratory Rate 16 12/12/17 07:00 Blood Pressure 145/83 12/12/17 07:00 Pulse Ox 94 12/12/17 07:00 Intake and Output (24hr x 4 totals) 12/10/17 12/11/17 12/12/17 12/13/17 05:59 05:59 05:59 05:59 Intake Total 4000 / 4000 Output Total 700 / 700 Balance 3300 / 3300
[2017-12-12] MEDS: Clindamycin 900mg (Premix) 900 MG/50 ML BAG IV SCH (16:27)
--- NOTE | 2017-12-12 16:50 | CONSULT ---
Consult Note - Consult Consult Date: 12/12/17 Reason for Consult: Other Requesting Physician: Dr. Blackwell Primary Care Provider: Roger Carpenter MD - History of Present Illness History of Present Illness: This is a 62 years old the female with medical history significant for history of hypothyroidism, diabetes, hypertension, depression, obstructive sleep apnea who had a C3-7 anterior cervical surgery performed on 06/25/2017 done at [facility] and apparently she fell after that then she started to have pain and she was evaluated Dr. Blackwell and apparently x-ray showed that the upper aspect of the anterior cervical plate pulling out from the C3 vertebral body with one of the C3 screws protruding from the plate so she came in and had surgery done by Dr. Blackwell today. There is a plan for another surgery on Tuesday. Patient was seen postoperatively had some pain in the neck but otherwise denying other symptoms there's no nausea or shortness of breath. Past Medical History Medical History: 1. Diabetes on insulin. 2. Depression. 3. Hypothyroidism. 4. Urinary incontinence. 5. Obstructive sleep apnea. 6. History of hypertension. 7. History of hypothyroidism. 8. History of fibromyalgia. 9. History of Parkinson disease on no medication. 10. History of traumatic head injury Surgical History: 1. History of knee replacement. 2. History of tonsillectomy. 3. History of hysterectomy. 4. History of cholecystectomy. 5. History of appendectomy. 6. History of fusion of cervical spine. 7. History of rhizotomy Family History: Reviewed an Not Pertinent Past Social History: Does not smoke, does not drink no drugs. Lives by herself in [facility]. She said there were ex- will stay with her after discharge. Tobacco Use: Never Smoker In the Past 12 Months, Have Used or Abuse Any of the Following Substance: None, Opiate Pain Medication Alcohol Use: None Review of Systems - Review of Systems All Systems: Reviewed & No Additional Complaints Except as Stated Medication / Allergies Home Medications: Home Medications 3 Medication Instructions Recorded Confirmed Type Incontinence Pad,Liner,Disp [Poise 1 ea PRN #1 box 05/08/12 12/12/17 History Pads] Ibuprofen 1 tab PO QPM PRN #0 tab 10/16/15 12/12/17 History Pen Needle, Diabetic [Novofine 32] 1 [facility] 5XD #150 unit 11/06/15 12/12/17 Rx Lancets [Onetouch Lancets] 1 ea MC BID #100 ea 11/27/15 12/12/17 Rx Estradiol [Vagifem] 10 mcg VAGINAL 2XW #3 box 01/02/16 12/12/17 Rx Triamcinolone Acetonide 1 applic TP BID PRN #15 gm 05/06/16 12/12/17 History Bipap 1 unit #1 unit 10/12/16 12/09/17 History Meloxicam 1 tab PO QHS tab 10/12/16 History diclofenac 1 % topical gel 2 g TOPICAL QID #100 g 11/11/16 12/12/17 Rx insulin detemir (U-100) 100 20 unit SQ QHS #4 vial 12/31/16 12/12/17 Rx unit/mL (3 mL) subcutaneous pen sumatriptan 100 mg tablet 100 mg PO QDAY PRN #6 tab 12/31/16 12/12/17 Rx blood sugar diagnostic strips 1 strip MISCELLANEOUS TID #100 02/01/17 12/12/17 Rx strip meclizine 25 mg tablet 25 mg PO QID PRN #30 tab 03/21/17 12/12/17 Rx risperidone 0.5 mg tablet 0.5 mg PO BID #60 tab 03/22/17 12/12/17 Rx insulin aspart U-100 100 unit/mL 3 - 16 unit SUBCUT ACHS #15 ml 05/24/17 Rx subcutaneous pen linagliptin 5 mg tablet 5 mg PO QDAY #30 tab 05/31/17 12/12/17 Rx zolpidem 5 mg tablet 5 mg PO QDAY #90 tab 06/17/17 12/12/17 Rx gabapentin 300 mg capsule 300 mg PO QID #480 cap 07/05/17 12/12/17 Rx linaclotide 290 mcg capsule 290 mcg PO QDAY 07/05/17 12/12/17 History duloxetine 60 mg capsule,delayed 60 mg PO BID #180 cap 07/06/17 12/12/17 Rx release pantoprazole 40 mg tablet,delayed 40 mg PO BID #180 tab 07/26/17 12/12/17 Rx release metformin 1,000 mg tablet 1,000 mg PO BID #180 tab 08/23/17 12/12/17 Rx simvastatin 20 mg tablet 20 mg PO QHS #90 tab 08/23/17 12/12/17 Rx ropinirole ER 2 mg tablet,extended 2 mg PO QHS #90 tab 09/02/17 12/12/17 Rx release 24 hr OneTouch Ultra2 kit 1 ea MISCELLANEOUS DIRECTED #1 11/03/17 12/12/17 Rx unit NS levothyroxine 175 mcg tablet 175 mcg PO QDAY #90 tab 11/18/17 12/12/17 Rx morphine ER 60 mg tablet,extended 60 mg PO Q12H #60 tab 11/29/17 12/12/17 Rx release oxycodone 10 mg tablet 10 mg PO Q4-6H PRN 11/29/17 12/12/17 History Clonazepam 0.5 mg PO BID@0900,1900 12/12/17 12/12/17 History Cyclobenzaprine HCl 5 mg PO TID@0900,1200,2100 12/12/17 12/12/17 History Furosemide 40 mg PO DAILY@1200 12/12/17 12/12/17 History Lisinopril 20 mg PO DAILY@1200 12/12/17 12/12/17 History Loratadine [Allergy] 10 mg PO DAILY@1900 12/12/17 12/12/17 History Oxybutynin Chloride [Oxybutynin 15 mg PO BEDTIME 12/12/17 12/12/17 History Chloride ER] Potassium Chloride 20 meq PO DAILY@1200 12/12/17 12/12/17 History Allergies/Adverse Reactions: Allergies 3 Allergy/AdvReac Type Severity Reaction Status Date / Time latex Allergy Intermediate NOT Verified 12/13/17 09:18 APPLICABLE adhesive Allergy Mild rash Verified 12/13/17 09:18 Penicillins Allergy Mild RASH Verified 12/13/17 09:18 ADHESIVES Allergy Intermediate RASH Uncoded 12/13/17 09:18 silver *RETIRED-12/16/14 Allergy Unknown NOT Uncoded 12/13/17 09:18 APPLICABLE silver AdvReac Unknown NOT Uncoded 12/13/17 09:18 APPLICABLE Exam - Vitals Vital Signs: Vital Signs Temperature 97.8 F Pulse Rate 89 Respiratory Rate 18 Blood Pressure 145/83 Pulse Ox 91 Oxygen Flow Rate 2 Oxygen Delivery Method Nasal Cannula Height 5 ft 4 in Weight 225 lb - General General Appearance: No Acute Distress, Cooperative - Head Head Exam: Normal Inspection - Eye Eye Exam: POSITIVE: Normal Appearance - ENT ENT Exam: POSITIVE: Normal Exam - Neck Additional Neck Exam Details: She is wearing a cervical collar - Respiratory Respiratory Exam: POSITIVE: Clear to Auscultation - Bilaterally - Cardiovascular Cardiovascular Exam: POSITIVE: RRR - GI/Abdominal GI/Abdominal Exam: POSITIVE: Normal Bowel Sounds, Non Tender, Non Distended - Rectal Rectal Exam: POSITIVE: Deferred - External Exam: POSITIVE: Deferred - Extremities Extremities Exam: POSITIVE: Normal Inspection - Neurological Neurological Exam: POSITIVE: Alert, Oriented x 3, CN II-XII Intact, No Facial Droop, Speech Intact / Clear Additional Neurological Exam Details: She is moving her limbs all with no apparent weakness - Integumentary Integumentary Exam: POSITIVE: Normal Color Results - Labs CBC and BMP: 12/13/17 04:40 12/13/17 04:40 Assessment and Plan - Patient Problems (1) Benign hypertension Current Visit: No Status: Chronic Comment: I think will her see her blood pressure tomorrow and then will decide about restarting her lisinopril. (2) Diabetes mellitus, type 2 Current Visit: No Status: Chronic Comment: Continue Levemir and will put her on sliding scale. (3) Hyperlipidemia Current Visit: No Status: Chronic Comment: Same med (4) Hypothyroidism Current Visit: No Status: Chronic Comment: Same med (5) S/P neck surgery, follow-up exam Current Visit: Yes Status: Acute Comment: Management per Dr. Blackwell Code(s): Z09 - Encounter for follow-up examination after completed treatment for conditions other than malignant neoplasm
[2017-12-12] MEDS: HYDROmorphone Tab 4 MG TAB PO PRN (18:32)
[2017-12-12] MEDS: DIAZEPAM 10 MG TABLET PO PRN (18:33)
[2017-12-12] MEDS: metFORMIN 500 MG TABLET PO SCH (20:29)
[2017-12-12] MEDS: RISPERIDONE 1 MG PO SCH (20:29)
[2017-12-12] MEDS: Ropinirole Tab 1 MG TAB PO SCH (20:29)
[2017-12-12] MEDS: DULOXETINE 60 MG CAPSULE PO SCH (20:29)
[2017-12-12] MEDS: PANTOPRAZOLE 40 MG TABLET PO SCH (20:30)
[2017-12-12] MEDS: Simvastatin Tab 20 MG TAB PO SCH (20:48)
[2017-12-12] MEDS ORDERED: Insulin Detemir 300unit/3ml Flexpen SUBCUT SCH (21:00)
[2017-12-12] MEDS ORDERED: ROPINIROLE 2 MG PO SCH (21:00)
[2017-12-12] MEDS: LORazepam 1 MG TABLET PO PRN (22:04)
[2017-12-13] MEDS: HYDROmorphone Tab 4 MG TAB PO PRN ×4 (00:12→20:41)
[2017-12-13] MEDS: Clindamycin 900mg (Premix) 900 MG/50 ML BAG IV SCH (00:12)
[2017-12-13] MEDS: DIAZEPAM 10 MG TABLET PO PRN ×3 (02:08→20:41)
[2017-12-13] MEDS: HYDROmorphone 2 MG/1 ML IVP PRN ×5 (04:35→23:32)
[2017-12-13] MEDS: LEVOTHYROXINE 75 MCG TABLET PO SCH (04:35)
[2017-12-13] MEDS: LEVOTHYROXINE 100 MCG TABLET PO SCH (04:35)
[2017-12-13 05:34] LABS: BASOPHILS # (AUTO) 0.02 10*3/UL; BASOPHILS % (AUTO) 0.2 % (0-1); EOSINOPHILS # (AUTO) 0.01 10*3/UL; EOSINOPHILS % (AUTO) 0.1 % (0-8); Hematocrit [HCT] 31.6 % (37.0-47.0); Hemoglobin [HGB] 10.2 g/dL (12.0-16.0); LYMPHOCYTES # (AUTO) 2.95 10*3/uL; MEAN CORPUSCULAR HEMOGLOBIN 26.6 PG (27-31); MEAN CORPUSCULAR HGB CONC 32.3 g/dL (33-37); MEAN CORPUSCULAR VOLUME 82.5 FL (81-99); MEAN PLATELET VOLUME 8.9 FL (7.4-12.2); MONOCYTES # (AUTO) 0.78 10*3/UL (0.3-0.8); MONOCYTES % (AUTO) 6.5 % (5-15); NEUTROPHILS # (AUTO) 8.11 10*3/UL; NEUTROPHILS % (AUTO) 68.1 % (50-80); RED BLOOD COUNT 3.83 10^6/uL (4.20-5.40)
[2017-12-13 05:50] LABS: PLATELET MORPHOLOGY COMMENT NORMAL MORPHOLOGY (NORM); RBC MORPHOLOGY COMMENT NORMAL MORPHOLOGY (NORM); WBC MORPHOLOGY COMMENT NORMAL MORPHOLOGY (NORM)
--- NOTE | 2017-12-13 06:00 | NEURO.PROG ---
Subjective Post Op Day: 1 Pain Management: IV Lipscomb Catheter: Yes Flatus: Yes Diet: Regular Ambulating: Yes Additional Details: Awake, alert, and oriented. Eating, drinking. Up OOB ambulating. No change in voice. Moving all extremities well. PLAN: 1.) Continue post-operative antibiotics. 2.) Continue post-operative pain control. 3.) NPO after midnight. 4.) Posterior cervicothoracic instrumented fusion tomorrow. Objective : Data - Labs CBC and BMP: 12/13/17 04:40 - Vital Signs Vital Signs and I&O: Vital Signs - Last Taken Temperature 98.5 F 12/13/17 04:55 Pulse Rate 95 12/13/17 04:55 Respiratory Rate 20 12/13/17 04:55 Blood Pressure 166/57 12/13/17 05:28 Pulse Ox 94 12/13/17 05:00 Intake and Output (24hr x 4 totals) 12/10/17 12/11/17 12/12/17 12/13/17 05:59 05:59 05:59 05:59 Intake Total 7250 / 7250 Output Total 4430 / 4430 Balance 2820 / 2820
[2017-12-13 06:01] LABS: BLOOD UREA NITROGEN 10 mg/dL (7-22); BUN/CREATININE RATIO 16.66 (6-20)
[2017-12-13] MEDS ORDERED: PANTOPRAZOLE 40 MG TABLET PO SCH (07:00)
[2017-12-13] MEDS: Insulin Lispro Flexpen 300 UNIT/3 ML INSULN.PEN SUBCUT SCH ×3 (07:59→17:03)
[2017-12-13] MEDS: PANTOPRAZOLE 40 MG TABLET PO SCH ×2 (08:11→17:03)
[2017-12-13] MEDS: DULOXETINE 60 MG CAPSULE PO SCH ×2 (08:11→20:41)
[2017-12-13] MEDS: RISPERIDONE 1 MG PO SCH ×2 (08:11→20:40)
[2017-12-13] MEDS: metFORMIN 500 MG TABLET PO SCH ×2 (08:11→20:40)
[2017-12-13] MEDS: GABAPENTIN 300 MG CAPSULE PO SCH ×2 (08:11→11:32)
--- NOTE | 2017-12-13 09:30 | PDOC(PROG) ---
Date of Service: 12/13/17 Time of Service: 09:30 Interval History: Subjective She said she has some pain in the back of her neck but otherwise denying other symptoms. She did get up and walk with physical therapy. Objective : Data - Labs CBC and BMP: 12/13/17 04:40 12/13/17 04:40 Objective : Exam - General General Appearance: No Acute Distress, Cooperative - Head Head Exam: Normal Inspection - Eye Eye Exam: Normal Appearance - ENT ENT Exam: Normal Exam - Neck Additional Neck Exam Details: She is wearing a cervical collar - Respiratory Respiratory Exam: Clear to Auscultation - Bilaterally - Cardiovascular Cardiovascular Exam: RRR - GI/Abdominal GI/Abdominal Exam: Normal Bowel Sounds, Non Tender, Non Distended, Soft, No Organomegaly - Rectal Rectal Exam: Deferred - External Exam: Deferred Exam: Deferred - Extremities Extremities Exam: Normal Inspection - Neurological Neurological Exam: Alert, Oriented x 3, CN II-XII Intact, No Facial Droop, Speech Intact / Clear, Moves All Extremities Equally - Psychiatric Psychiatric Exam: Normal Affect Assessment and Plan - Patient Problems (1) Benign hypertension Current Visit: No Status: Chronic Comment: I think will restart her lisinopril today. We'll restart her Lasix also her blood pressure is high. (2) Diabetes mellitus, type 2 Current Visit: No Status: Chronic Comment: We'll cut back on the Levemir, she'll have surgery tomorrow (3) Hyperlipidemia Current Visit: No Status: Chronic Comment: Same med (4) Hypothyroidism Current Visit: No Status: Chronic Comment: Same medication (5) S/P neck surgery, follow-up exam Current Visit: Yes Status: Acute Comment: Same pain medication. Management per Dr. Blackwell Code(s): Z09 - Encounter for follow-up examination after completed treatment for conditions other than malignant neoplasm
--- NOTE | 2017-12-13 09:32 | CRNA.PROGR ---
Anesthesia Note - Progress Notes Anesthesia Progress Note: Post OP Anesthesia Note Pt is sitting at edge of bed, working with PT, she has been up ambulating, and PT is working with her to get to the restroom. She has tolerated a regular diet and denies any PONV. She states that her pain is well under control. She denies any residual problems of a general anesthetic. Current VS are stable. Vital Signs - Last Taken Temperature 97.6 F 12/13/17 09:00 Pulse Rate 91 12/13/17 09:00 Respiratory Rate 22 12/13/17 09:00 Blood Pressure 192/72 12/13/17 09:00 Pulse Ox 91 12/13/17 09:00
--- NOTE | 2017-12-13 10:11 | PT PM DAY ---
Diagnosis : Status Post C3-7 Hardware Removal/Partial Carpectomy @ C3/C3-5 Anterior Fusion PM - Physical Therapy O: The patient was issued an [place] Cervical Collar and instructed in its proper use and care. P: No further therapy is indicated at this time. MTDD
[2017-12-13] MEDS: POTASSIUM CHLORIDE 20 MEQ TAB PO SCH (11:32)
[2017-12-13] MEDS: FUROSEMIDE 40 MG TABLET PO SCH (11:33)
[2017-12-13] MEDS: LISINOPRIL 20 MG TABLET PO SCH (11:33)
--- NOTE | 2017-12-13 11:56 | PT.PROG ---
Progress Note Progress Note: Inpatient Initial Evaluation Name: Vivien Mary Date: 12/13/17 Referring Physician: Dr. Jasper Blackwell Date of Surgery/Admission: 12/12/17 Diagnosis: Pt. had hardware removed form cervical spine yesterday and is scheduled for further surgical procedures on Tuesday. Thank you for your referral of PT. S: The pt. reports her pain as an 8/10 today. She states she has 12 steps at home that she only uses when she needs to do laundry. She reports her head was hurting throughout therapy today. Past medical history can be found in the patient's medical chart. O: The patient demonstrated the ability to ambulate for 150 ft without an assistive device and MIAx1. She completed all transfers with standby assist x1. She experienced mild SOB when ambulating due to fatigue. She has moderate restrictions with shoulder abduction and flexion ROM <90* due to weakness and pain following surgery. C4-C8 myotomes are found negative. Pt. completed the first 6 items on the Russ Balance Scale, but could not complete the last 8 items due to recent surgical procedure. A: Problems List: 1. Pain 2. Weakness 3. Difficulties with ambulation Short Term Goals: Patient will be able to complete all transfers independently. Patient will be able to ambulate more than 150 ft without requiring a rest break. Financial Director Goals: Patient will be able to ambulate up and down stairs independently in order to do her laundry safely and independently. Patient will be seen by outpatient physical therapy if deemed necessary at time of discharge. P: Patient will be seen twice a day during the week and once over the weekend as an inpatient until time of discharge. Treatment consisted of the initial evaluation followed by treatment (see objective). Respectfully submitted, Tammy Valadez, SPT [facility]IT [facility]
[2017-12-13] MEDS: LORazepam 1 MG TABLET PO PRN (17:13)
[2017-12-13] MEDS: Ropinirole Tab 1 MG TAB PO SCH (20:40)
[2017-12-13] MEDS: Simvastatin Tab 20 MG TAB PO SCH (20:40)
[2017-12-13] MEDS ORDERED: Insulin Detemir 300unit/3ml Flexpen SUBCUT SCH (21:00)
[2017-12-14] MEDS: HYDROmorphone Tab 4 MG TAB PO PRN ×2 (03:03→20:54)
[2017-12-14] MEDS: HYDROmorphone 2 MG/1 ML IVP PRN ×3 (04:09→22:31)
[2017-12-14] MEDS: DIAZEPAM 10 MG TABLET PO PRN ×2 (04:13→19:52)
[2017-12-14] MEDS: LEVOTHYROXINE 100 MCG TABLET PO SCH (04:48)
[2017-12-14] MEDS: LEVOTHYROXINE 75 MCG TABLET PO SCH (04:55)
[2017-12-14] MEDS ORDERED: LIDOCAINE MPF 2% - 5 ML (20 MG/1 ML) ONE (05:34)
[2017-12-14] MEDS: Lactated Ringers 1,000 ML PRIMARY IV SCH ×4 (05:34→18:46)
[2017-12-14] MEDS ORDERED: PROPOFOL 10 MG/1 ML (200 MG/20 ML) VIAL IV ONE ×4 (05:34→15:19)
[2017-12-14] MEDS ORDERED: KETAMINE 100 MG/1 ML - 5 ML ONE (05:34)
[2017-12-14] MEDS ORDERED: fentaNYL Inj 250 MCG/5 ML VIAL ONE ×3 (05:34→15:03)
[2017-12-14] MEDS ORDERED: HYDROmorphone 2 MG/1 ML ONE ×4 (05:35→14:00)
[2017-12-14] MEDS ORDERED: SUCCINYLCHOLINE CHLORIDE 20 MG/1 ML - 10 ML ONE (05:35)
[2017-12-14] MEDS ORDERED: MIDAZOLAM 5 MG/1 ML ONE (05:35)
[2017-12-14] MEDS ORDERED: KETOROLAC 30 MG/1 ML VIAL ONE (05:36)
[2017-12-14] MEDS ORDERED: Acetaminophen 1000mg Inj 1,000 MG/100 ML VIAL IV ONE (05:36)
[2017-12-14] MEDS ORDERED: SCOPOLAMINE HYDROBROMIDE 1.5 MG - 1 EACH PATCH TRANSDERM ONE (05:36)
[2017-12-14] MEDS ORDERED: FAMOTIDINE 20 MG/2 ML VIAL IVP ONE ×2 (05:37→06:37)
[2017-12-14] MEDS ORDERED: CITRIC ACID/SODIUM CITRATE 30 ML CUP PO ONE (05:37)
[2017-12-14] MEDS ORDERED: Vancomycin Inj 1gm vial ONE ×2 (05:54→12:43)
[2017-12-14] MEDS ORDERED: Clindamycin 900mg (Premix) 900 MG/50 ML BAG IV ONE ×3 (05:55→13:30)
[2017-12-14] MEDS ORDERED: LIDOCAINE W/ SODIUM BICARB 0.5 ML SYR ONE (05:55)
[2017-12-14] MEDS ORDERED: Lactated Ringers 1,000 ML PRIMARY IV ONE ×4 (05:55→14:16)
[2017-12-14] MEDS ORDERED: Sodium Chloride 0.9% 0 ML ONE ×2 (05:56→11:08)
[2017-12-14] MEDS ORDERED: REMIFENTANIL HCL 2 MG VIAL IV ONE ×7 (05:57→13:48)
[2017-12-14] MEDS ORDERED: Sodium Chloride 0.9% vial 60 ML ONE (05:58)
[2017-12-14] MEDS ORDERED: Sodium Chloride 0.9% vial 20 ML ONE ×3 (05:59→14:16)
[2017-12-14] MEDS ORDERED: Hetastarch 6% + NS 500 ML IV ONE (06:24)
[2017-12-14] MEDS: Nasal Sanitizer POPSWAB ampule 3 AMP (Nozin) PREOP DOSE ENOS SCH ×2 (06:25→07:20)
[2017-12-14] MEDS ORDERED: Propofol 1,000 MG/100 ML VIAL IV ONE ×4 (06:27→12:16)
[2017-12-14] MEDS ORDERED: LIDOCAINE W/ SODIUM BICARB 0.5 ML SYR SUBD ONE (06:30)
[2017-12-14] MEDS: Clindamycin 900mg (Premix) 900 MG/50 ML BAG IV SCH ×2 (06:40→18:47)
[2017-12-14] MEDS ORDERED: BUPivacaine Inj 0.25% PF - 10ml vial ONE (06:59)
[2017-12-14] MEDS ORDERED: Povidone-Iodine Ointment 28.35 gm ointment TOPICAL ONE (07:00)
[2017-12-14] MEDS ORDERED: BACITRACIN 50,000 UNIT VIAL IRRIG ONE ×2 (07:00→12:43)
[2017-12-14] MEDS ORDERED: ePHEDrine Inj 50 MG/ML AMP ONE (07:21)
[2017-12-14] MEDS ORDERED: ROCURONIUM 10 MG/1 ML - 5 ML VIAL IVP ONE (07:22)
[2017-12-14] MEDS ORDERED: PHENYLEPHRINE 10,000 MCG/1 ML VIAL ONE (07:48)
[2017-12-14] MEDS ORDERED: BUPIVACAINE 0.25% W/ EPI - 10 ML VIAL ONE (08:45)
[2017-12-14] MEDS: Insulin Lispro Flexpen 300 UNIT/3 ML INSULN.PEN SUBCUT SCH ×3 (08:57→18:19)
[2017-12-14] MEDS: PANTOPRAZOLE 40 MG TABLET PO SCH ×2 (08:57→17:27)
[2017-12-14] MEDS: metFORMIN 500 MG TABLET PO SCH ×2 (08:58→20:55)
[2017-12-14] MEDS: DULOXETINE 60 MG CAPSULE PO SCH ×2 (08:58→20:53)
[2017-12-14] MEDS: GABAPENTIN 300 MG CAPSULE PO SCH ×2 (08:58→13:51)
[2017-12-14] MEDS: RISPERIDONE 1 MG PO SCH ×2 (08:58→20:53)
[2017-12-14] MEDS ORDERED: Sodium Chloride 0.9% 250 ML ONE ×2 (10:05→11:15)
[2017-12-14] MEDS ORDERED: Sodium Chloride 0.9% vial 10 ML ONE ×2 (12:42→16:22)
[2017-12-14] MEDS ORDERED: Gentamicin Inj 40 MG/ML VIAL ONE (12:42)
[2017-12-14] MEDS: POTASSIUM CHLORIDE 20 MEQ TAB PO SCH (13:51)
[2017-12-14] MEDS: LISINOPRIL 20 MG TABLET PO SCH (13:51)
[2017-12-14] MEDS: FUROSEMIDE 40 MG TABLET PO SCH (13:51)
[2017-12-14] MEDS ORDERED: ONDANSETRON 4 MG/2 ML VIAL ONE (13:59)
[2017-12-14] MEDS ORDERED: BUPivacaine Liposome/PF (Exparel) Inj 20ml vial INFIL ONE (14:16)
[2017-12-14] MEDS ORDERED: ESMOLOL HCL 100 MG/10 ML VIAL ONE (15:57)
[2017-12-14] MEDS ORDERED: NALOXONE 0.4 MG/1 ML VIAL ONE (16:22)
--- NOTE | 2017-12-14 16:35 | GEN.OPNOTE ---
Operative Note Surgery Date: 12/14/17 Preoperative Diagnosis: Neck pain. Failed anterior cervical fusion. S/P - Revision of anterior cervical fusion Postoperative Diagnosis: Same Procedure: 1.) Posterior cervical/thoracic approach. 2.) C3-4 arthrodesis bilaterally in preperation for posterolateral fusion. 3.) C4-5 arthrodesis bilaterally in preparation for posterolateral fusion. 4.) C5-6 arthrodesis bilaterally in preparation for posterolateral fusion. 5.) C6-7 arthrodesis bilaterally in preparation for posterolateral fusion. 6.) C7-T1 arthrodesis bilaterally in preparation for posterolateral fusion. 7.) T1-2 arthrodesis bilaterally in preparation for posterolateral fusion. 8.) C3-T2 posterolateral instrumentation using the Xyo posterior cervicothoracic instumentation sytem with placement of 3.5 x 14 mm lateral mass screws in C3, C4 , C5, C6 bilaterally and 4.0 x 24 mm pedicle screws in T1 and 4.0 x 26 mm pedicle screws in T2 bilaterally. 9.) Use of large INFUSE bone morphogenic protein (synthetic bone product). for posterolateral fusion. 10.) Use of 60 cc cancellous chips (allograft) for posterolateral fusion. 11.) Use of 20cc of Automation Alley BIO BMP with cancellous chips (allograft) for posterolateral fusion. 12.) Use of the Automation Alley neuronavigation system for the cannulization of the T1 and T2 pedicles for the subsequent placement of the T1 and T2 pedicle screws. 13.) Use of intra-operative fluoroscopy for localization of correct surgical levels and for confirmation of the final postion of the posterolateral hardware elements. 14.) Use of intra-operative neuromonitoring for monitoring of nerve function during the procedure. 10.) Use of 60 cc ca Surgeon: Jasper Blackwell MD Pet Store Merchandiser: KRZYSZTOF Lopez Anesthesia Provider: Ashley Becerra CRNA Anesthesia Type: General Estimated Blood Loss (mL): 475 Fluids: 2700 LR Pathology: None Indications: Support revision of multilevel anterior cervical fusion Findings: Multilevel advanced facet arthropathy/hypertrophy Complications: None Operative Summary: Ms. Gurjit Mary was met in the preoperative area. Her surgical history and physical was updated. The procedure to be performed was confirmed with this Ms. Gurjit Mary and we were in agreement on the procedure to be performed, including that the exact levels of her fusion and instrumentation would be determined at the time of surgery, and this matched what was written on the patient's consent form, and this matched what was discussed in the patient's preoperative surgical history and physical discussion section regarding the procedure and the benefits and risks of the procedure. Any questions that she had were answered before she was taken back to the operating room suite. Ms. Gurjit Mary was brought back to the operating room suite. She was put under general anesthesia and intubated by the anesthesia staff. Her head was placed in 3-point skull fixation using the Freeman clinical trial head. She had a Lipscomb catheter placed in her bladder for the procedure. She had pneumatic compression hose placed on her lower legs bilaterally. Miss Mary was carefully rolled over onto the [place] table in the prone position. Her head was fixed to the surgical bed in neutral position using the Freeman clinical trial head. Her breasts were checked be below the chest pad of the [place] table with no pressure points over the nipples. Her arms were gently tucked at her sides with all bony prominences well-padded. Her axilla was checked bilaterally to make sure that there are no pressure points over the region of the brachial plexus bilaterally. Her Lipscomb catheter was checked be free from kinks. Her pneumatic compression hose was attached and pneumatic compression device. The hair in the region of the occipital area of her head was clipped with a surgical clipper. Any loose hairs were removed with surgical tape. Her shoulder were gently retracted using surgical tape. The intended surgical site was demarcated with 1010 plastic surgical drapes. The intended skin incision was marked in the midline with a skin marker with several crosshatches. She was prepped and draped in the usual and standard fashion. She was given 900 mg of Cleocin IV for perioperative antibiosis. She was given 1 g of vancomycin IV for perioperative antibiosis. She was given 4 mg of Decadron IV. A surgical timeout was performed identifying the correct patient, the patient's symptoms, the correct procedure, and the correct equipment being available for the procedure. The intended skin incision was injected subcutaneously with quarter percent Marcaine with 1 in 200,000 epinephrine. 16 mL of local anesthetic was used. The intended skin incision was incised with a 10 blade scalpel and all dermal and superficial subcutaneous bleeding points were coagulated with bipolar cautery. Dissection was continued down through the copious subcutaneous fatty tissue in the median raphae down to the deep cervical fascia. The cervical fascia was incised along the borders of the spinous processes and subperiosteal dissection was performed doen the spinous processes and out over the lamina. Several of the cervical lamina were exposed in this way. Continuing the dissection caudally, the cervical thoracic junction was identified and the same dissection was performed in the very rostral aspect of the thoracic spine. A Amanda was placed on what was believed to be the spinous process of C3 and this was confirmed using lateral fluoroscopy. This identified all of the exposed levels and continued subperiosteal dissection was performed until final exposure was from the C3 lamina through the T2 lamina bilaterally. The dissection was taken out laterally over the lateral aspect of the lateral masses of the cervical spine and out over the transverse processes and to the proximal rib heads in the upper thoracic spine. Gelpi retractors were used for self-retaining retraction. Soft tissue was cleaned over of the posterior aspect of the spine using Bovie cautery and a large Leksell rongeur. The high-speed Style on Screen drill with a matchstick bit was used to drill down the bony arthropathy and hypertrophy of the enlarged degenerated facet joints. The drill was then used to help identify the actual joint space in the lateral masses to help better define the lateral masses from C3-4 down to C7-T1. With the lateral masses better defined the same drill with the same bit was used to demarcate the entry point for the lateral mass screws with the entry point defined by bony landmarks. The lateral masses of C3, C4, C5, and C6 were then drilled using the Automation Alley hand- held drill set to a depth of 12 mm drilling rostrally and laterally through the lateral mass at each level each of the lateral masses was then drilled to a depth of 14 mm. A ball-tip instrument was then to probe the bony channels in each of the lateral masses from C3-C6 bilaterally. Each of the lateral masses was then tapped the [place] lateral mass screw tap. Before placing the lateral mass screws, the C3-4, C4-5, C5-6, and C6-7 facet joints were drilled out with the high speed drill with the matchstick bit. The cervical lateral mass screws were then placed, placing 3.5 mm x 14 mm lateral mass screws in the C3 C4 C5 and C6 lateral masses bilaterally. All lateral mass screws obtained good purchase in the lateral mass bone which was hard bone. With the good purchase of all the lateral mass screws in the lateral masses from C3-C6 it was decided not to expose the C2 level and take down all musculature at this level to perform C2 pedicle screws which was felt not to be necessary. It was also decided not to place lateral mass or pedicle screws at C7 because the C6 and C7 levels appeared to be fused and because it was felt that the screw heads of C6, C7, and T1 would interfere with one another if they were all placed. The Automation Alley neuro navigation reference arc was then attached to the T2 spinous process and a spin was performed with the [facility] 3-D fluoroscopy fluoroscopy unit. The 3-D images obtained were then used to help guide the cannulization of the T1 and T2 pedicles bilaterally with the initial entry point for the pedicle screws being defined by the neuro navigation probe but then with the pedicles of T1 and T2 being cannulated with a small handheld pedicle probe. The internal aspect of the pedicle tracks were palpated with a small ball-tip instrument. All of the pedicle tracts at each level and on each side was surrounded by bone. The T1 and T2 pedicle tracks were then tapped with the [place] tap. The thoracic pedicle screws are then placed. 4.0 x 24 mm pedicle screws are placed in the T1 pedicles bilaterally. 4.0 mm x 26 mm pedicle screws were placed into the T2 pedicles bilaterally. The pedicle screws obtained good purchase in the pedicle and vertebral body bone. Because her bone at these levels was hard and the T1, and T2 pedicle screws obtained good bony purchase it was felt that the placement of T3 pedicle screws was not necassary. The cervical lateral mass screws and the thoracic pedicle screws were then interrogated with triggered EMGs. Another spin was performed with the [facility] 3- D fluoroscopy unit to provide further confirmation that the lateral mass screws were indeed in the lateral masses bilaterally and at the pedicle screws were indeed contained within the confines of the thoracic pedicles bilaterally. A template was then used to measure the length of the rods needed to span from the C3 lateral mass screw tulip to the T2 pedicle screw tulip bilaterally. 3.5 mm titanium rods were then cut to the appropriate length and then bent into the appropriate cervical lordosis and thoracic kyphosis using the deandre fairchild. The lamina from C3-T2 was then decorticated using the [employer] (T/A) Adán high-speed drill with a matchstick bit. The lateral masses were decorticated from C3 C7 and a transverse processes of T1 and T2 were decorticated in the same fashion. The rods were then placed into the tulips of the lateral mass screws and pedicle screws bilaterally. The setscrews/blockers were then placed over the rods in the tulips of the lateral mass screws and pedicle screws from C3-T2. These were first tightened down hand tight then tightened down to their final tightness using the torque counter torque device. The surgical site was then irrigated with a bottle of hydrogen peroxide which was allowed to sit for a few minutes. The surgical site was then pulse lavaged with 3 L of vancomycin/bacitracin/gentamicin solution. The large INFUSE bone morphogenic protein (synthetic bone product) with 4 sponges were then cut in half creating 8 thinner sponges which were then placed medial to the hardware over the lamina from C3 down to the lamina of T2 bilaterally. The remaining 2 strips of infuse bone morphogenic protein strips were then placed lateral to the hardware construct across the cervical thoracic junction. 60 mL of cancellus bone chips (allograft) was then placed medial and lateral to the hardware construct from the C3 level to the T2 level bilaterally. 20 mL of Automation Alley bio DBM plus putty with cancellous chips ( allograft) was then placed over the cancellus bone chips both medial and lateral to the hardware construct from C3-T2 bilaterally. Two medium Hemovac drains were placed into the surgical site one on each side. The closure portion of the procedure was begun. The deep cervical musculature was reapproximated in the midline with #1 Vicryl suture in an interrupted fashion. The deep cervical fascia was closed tightly with #1 Vicryl suture in a interrupted fashion. The surgical site was again irrigated with bacitracin irrigation. The deep subcutaneous tissue and fascia was reapproximated with 2- 0 Vicryl suture in a interrupted fashion. A small area of space was notedd between the layer of closure of the deep subcutaneous tissue and the fascia and a third medium Hemovac drain was then placed into this small area of space. The dermis and superficial subcutaneous tissue was then reapproximated with 3-0 Vicryl suture in an inverted interrupted fashion. The Ioban drape was pulled back from the skin edges the final layer closure was performed surgical stainless steel michel. The incision was some cleansed with bacitracin soaked sponge and dry sterile dry sponge. The incision was dressed with a Mepilex dressing. The surgical drains were secured with suture. The surgical drain sites were then all dressed. All surgical drapes removed from Ms. Gurjit Mary. Her Eckert clinical trial head was released from its attachment to the surgical bed. She was carefully rolled over onto the PACU stretcher. She was taken out of the 3 point skull fixation of the Eckert clinical trial head. The skull pin sites were inspected and none were bleeding. Her dressing from her anterior cervical surgical site was removed and her anterior cervical drain was removed. The anterior cervical incision was cleansed and redressed with a new Mepilex dressing. Ms. Gurjit Mary was awoken and extubated by the anesthesia staff. She was taken the recovery room in stable condition. All surgical counts reported as correct by the scrub and circulating personnel. A physician's social science research assistant, Ms. Seble Franz PA-C, assisted with the procedure including including the exposure and closure portions of the procedure as well as providing retraction during the procedure and irrigation and suctioning throughout the procedure.
[2017-12-14] MEDS ORDERED: LABETALOL 20 MG/4 ML (5 MG/1 ML) SYRINGE ONE (16:36)
[2017-12-14 16:39] LABS: Hemoglobin [HGB] 11.8 g/dL (12.0-16.0)
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
--- NOTE | 2017-12-14 17:36 | CRNA.PROGR ---
Anesthesia Time - Procedure/Recovery Time Start Date: 12/14/17 Anesthesia : Time In: 07:23 Anesthesia : Time Out: 16:50 - Other Weight: 101.378 kg Height: 5 ft 4 in Body Mass Index (BMI): 38.3 Physical Status: P3 Anesthesia Type: General Anesthesia : ET (Prone position)
[2017-12-14] MEDS ORDERED: BISACODYL 5 MG TABLET PO PRN ×2 (17:51)
[2017-12-14] MEDS ORDERED: ONDANSETRON 4 MG/2 ML VIAL IVP PRN (17:51)
[2017-12-14] MEDS ORDERED: MAGNESIUM CITRATE 296 ML SOLUTION PO PRN ×2 (17:51)
[2017-12-14] MEDS ORDERED: PROMETHAZINE 25 MG/1 ML VIAL IM PRN (17:51)
[2017-12-14] MEDS ORDERED: DOCUSATE 100 MG CAPSULE PO PRN (17:51)
[2017-12-14] MEDS ORDERED: Fleet Enema 133ml RECTAL PRN ×2 (17:51)
[2017-12-14] MEDS ORDERED: Prochlorperazine Edisylate Inj 10mg/2ml vial IVP PRN (17:51)
[2017-12-14] MEDS ORDERED: Vancomycin-PHA to Dose IV PRN (17:51)
[2017-12-14] MEDS ORDERED: Lactated Ringers 1,000 ML PRIMARY IV SCH (17:51)
[2017-12-14] MEDS ORDERED: Ondansetron ODT Tab 4 MG TAB PO PRN (17:51)
[2017-12-14] MEDS ORDERED: MAGNESIUM 400 MG/5 ML - 30 ML (MILK OF MAGNESIA) PO PRN ×2 (17:51)
[2017-12-14] MEDS ORDERED: Metoclopramide Inj 10 MG/2 ML VIAL IVP PRN (17:51)
--- NOTE | 2017-12-14 18:28 | NEURO.PROG ---
Subjective Post Op Day: 2/0 Pain Management: IV Lipscomb Catheter: Yes Diet: Regular Ambulating: No Additional Details: Awake and alert. Following commands. Denies any new arm or leg symptoms. Good wall attendant bilaterally. Moving all extremities well bilaterally. PLAN: Continue post-operative antibiotics. Continue surgical drains. Continue post-operative pain control. Start to mobilize again in am. Objective : Data - Labs CBC and BMP: 12/14/17 16:39 12/13/17 04:40 - Vital Signs Vital Signs and I&O: Vital Signs - Last Taken Temperature 98.6 F 12/14/17 18:04 Pulse Rate 83 12/14/17 18:17 Respiratory Rate 20 12/14/17 18:17 Blood Pressure 172/68 12/14/17 18:17 Pulse Ox 94 12/14/17 18:17 Intake and Output (24hr x 4 totals) 12/12/17 12/13/17 12/14/17 12/15/17 05:59 05:59 05:59 05:59 Intake Total 7250 / 7250 1850 / 1850 2700 / 2700 Output Total 4430 / 4430 6870 / 6870 1225 / 1225 Balance 2820 / 2820 -5020 / -5020 1475 / 1475
--- NOTE | 2017-12-14 19:01 | PDOC(PROG) ---
Date of Service: 12/14/17 Time of Service: 18:00 Interval History: Subjective Patient complain from pain between the shoulder area she said. Denying other symptoms. She was seen postoperatively. Objective : Data - Labs CBC and BMP: 12/15/17 04:30 12/15/17 04:30 Objective : Exam - General General Appearance: No Acute Distress, Cooperative, Obese - Head Head Exam: Normal Inspection - Eye Eye Exam: Normal Appearance - ENT ENT Exam: Normal Exam - Neck Additional Neck Exam Details: She is wearing a cervical collar. Multiple drains noted. - Respiratory Respiratory Exam: Clear to Auscultation - Bilaterally - Cardiovascular Cardiovascular Exam: RRR - GI/Abdominal GI/Abdominal Exam: Normal Bowel Sounds, Non Tender, Non Distended, Soft, No Organomegaly - Rectal Rectal Exam: Deferred - External Exam: Deferred - Extremities Extremities Exam: Normal Inspection - Neurological Neurological Exam: Alert, Oriented x 3, CN II-XII Intact, No Facial Droop - Psychiatric Psychiatric Exam: Normal Affect Assessment and Plan - Patient Problems (1) Benign hypertension Current Visit: No Status: Chronic Comment: Continue same medications. (2) Diabetes mellitus, type 2 Current Visit: No Status: Chronic Comment: Continue current dosage of insulin Levemir and sliding scale. (3) Hyperlipidemia Current Visit: No Status: Chronic Comment: Same med (4) Hypothyroidism Current Visit: No Status: Chronic Comment: Same medication (5) S/P neck surgery, follow-up exam Current Visit: Yes Status: Acute Comment: Management per Dr. Blackwell. Code(s): Z09 - Encounter for follow-up examination after completed treatment for conditions other than malignant neoplasm
[2017-12-14] MEDS: Simvastatin Tab 20 MG TAB PO SCH (20:52)
[2017-12-14] MEDS: Ropinirole Tab 1 MG TAB PO SCH (20:54)
[2017-12-14] MEDS ORDERED: Insulin Detemir 300unit/3ml Flexpen SUBCUT SCH (21:00)
[2017-12-15] MEDS: Clindamycin 900mg (Premix) 900 MG/50 ML BAG IV SCH (00:46)
[2017-12-15] MEDS: HYDROmorphone 2 MG/1 ML IVP PRN ×6 (02:01→21:52)
[2017-12-15] MEDS: HYDROmorphone Tab 4 MG TAB PO PRN ×6 (02:56→23:43)
[2017-12-15] MEDS: LEVOTHYROXINE 100 MCG TABLET PO SCH (04:31)
[2017-12-15] MEDS: LEVOTHYROXINE 75 MCG TABLET PO SCH (04:31)
[2017-12-15 04:54] LABS: BASOPHILS # (AUTO) 0.02 10*3/UL; BASOPHILS % (AUTO) 0.2 % (0-1); EOSINOPHILS # (AUTO) 0.17 10*3/UL; EOSINOPHILS % (AUTO) 1.5 % (0-8); Hematocrit [HCT] 32.1 % (37.0-47.0); Hemoglobin [HGB] 10.2 g/dL (12.0-16.0); LYMPHOCYTES # (AUTO) 2.88 10*3/uL; MEAN CORPUSCULAR HGB CONC 31.8 g/dL (33-37); MEAN CORPUSCULAR VOLUME 81.9 FL (81-99); MEAN PLATELET VOLUME 8.6 FL (7.4-12.2); MONOCYTES # (AUTO) 0.88 10*3/UL (0.3-0.8); NEUTROPHILS # (AUTO) 6.99 10*3/UL; NEUTROPHILS % (AUTO) 63.7 % (50-80); RED BLOOD COUNT 3.92 10^6/uL (4.20-5.40)
[2017-12-15 05:06] LABS: PLATELET MORPHOLOGY COMMENT NORMAL MORPHOLOGY (NORM); RBC MORPHOLOGY COMMENT NORMAL MORPHOLOGY (NORM); WBC MORPHOLOGY COMMENT NORMAL MORPHOLOGY (NORM)
[2017-12-15] MEDS: Lactated Ringers 1,000 ML PRIMARY IV SCH ×2 (05:06→17:36)
[2017-12-15 05:10] LABS: BLOOD UREA NITROGEN 10 mg/dL (7-22); BUN/CREATININE RATIO 16.66 (6-20)
[2017-12-15] MEDS: DIAZEPAM 10 MG TABLET PO PRN ×2 (05:12→13:21)
--- NOTE | 2017-12-15 05:55 | NEURO.PROG ---
Subjective Post Op Day: 03/02 Pain Management: IV Lipscomb Catheter: Yes Flatus: Yes Diet: Regular Ambulating: No Additional Details: Awake and alert. Complaint of post-operative pain. Continues to deny any new symptoms in her arms or legs, states that she "feels strong". Moving all extremities well. PLAN: 1.) Will increase frequency of PO prn Dilaudid from q6h to q4h. 2.) Continue post-operative antibiotics. 3.) Continue drains. 4.) Lipscomb out. 5.) Mobilize. Objective : Data - Labs CBC and BMP: 12/15/17 04:30 12/15/17 04:30 - Vital Signs Vital Signs and I&O: Vital Signs - Last Taken Temperature 99.0 F 12/15/17 04:27 Pulse Rate 87 12/15/17 04:27 Respiratory Rate 20 12/15/17 04:27 Blood Pressure 151/65 12/15/17 04:27 Pulse Ox 94 12/15/17 04:27 Intake and Output (24hr x 4 totals) 12/12/17 12/13/17 12/14/17 12/15/17 05:59 05:59 05:59 05:59 Intake Total 7250 / 7250 1850 / 1850 5688 / 5688 Output Total 4430 / 4430 6870 / 6870 2340 / 2340 Balance 2820 / 2820 -5020 / -5020 3348 / 3348
[2017-12-15] MEDS: Insulin Lispro Flexpen 300 UNIT/3 ML INSULN.PEN SUBCUT SCH ×3 (06:56→17:35)
[2017-12-15] MEDS: PANTOPRAZOLE 40 MG TABLET PO SCH ×2 (06:57→17:35)
[2017-12-15] MEDS: DULOXETINE 60 MG CAPSULE PO SCH ×2 (08:51→20:07)
[2017-12-15] MEDS: metFORMIN 500 MG TABLET PO SCH ×2 (08:51→20:07)
[2017-12-15] MEDS: GABAPENTIN 300 MG CAPSULE PO SCH ×2 (08:51→11:49)
[2017-12-15] MEDS: LORazepam 1 MG TABLET PO PRN (08:51)
[2017-12-15] MEDS: RISPERIDONE 1 MG PO SCH ×2 (08:51→20:08)
--- NOTE | 2017-12-15 08:51 | PDOC(PROG) ---
Date of Service: 12/15/17 Time of Service: 09:00 Interval History: Subjective Complaining from pain at the site of the surgery and at the back the back of her head. No other symptoms. Objective : Data - Labs CBC and BMP: 12/15/17 04:30 12/15/17 04:30 Objective : Exam - General General Appearance: No Acute Distress, Cooperative - Head Head Exam: Normal Inspection - Eye Eye Exam: Normal Appearance - Neck Additional Neck Exam Details: She is wearing a cervical collar. Multiple drains in place. - Respiratory Respiratory Exam: Clear to Auscultation - Bilaterally - Cardiovascular Cardiovascular Exam: RRR - GI/Abdominal GI/Abdominal Exam: Normal Bowel Sounds, Non Tender, Non Distended, Soft, No Organomegaly - Rectal Rectal Exam: Deferred - External Exam: Deferred - Extremities Extremities Exam: Normal Inspection - Neurological Neurological Exam: Alert, Oriented x 3, CN II-XII Intact, No Facial Droop, Speech Intact / Clear - Psychiatric Psychiatric Exam: Normal Affect Assessment and Plan - Patient Problems (1) Benign hypertension Current Visit: No Status: Chronic Comment: Same medications (2) Diabetes mellitus, type 2 Current Visit: No Status: Chronic Comment: I think will increased her Levemir to 15 but sugar was elevated in the morning. She is normally on 20. (3) Hyperlipidemia Current Visit: No Status: Chronic Comment: Same med (4) Hypothyroidism Current Visit: No Status: Chronic Comment: Same med (5) S/P neck surgery, follow-up exam Current Visit: Yes Status: Acute Comment: Continue current pain medications. Management per Dr. Blackwell. I think though we'll cut back on her IV fluid. Code(s): Z09 - Encounter for follow-up examination after completed treatment for conditions other than malignant neoplasm (6) Postoperative anemia due to acute blood loss Current Visit: Yes Status: Acute Comment: She has mild anemia secondary to postoperative blood loss. Will watch her numbers. Code(s): D62 - Acute posthemorrhagic anemia
--- NOTE | 2017-12-15 10:28 | PT.PROG ---
Progress Note Progress Note: Inpatient Initial Evaluation Name: Vivien Mary Date: 12/15/17 Referring Physician: Dr. Jasper Blackwell Date of Surgery/Admission: 12/14/17 Diagnosis: C3-T2 cervical/thoracic fusion Thank you for the referral of PT. She was seen on 12/15/17 for the above diagnosis. S: Patient is a 62 year old female who presents to therapy following cervical/ thoracic spine fusion to C3-T2 vertebrae. Patient reports her upper back and the back of her head are very sore. She doesn't think she'll be able to participate in therapy today due to her pain. O: Objective measures are deferred at this time per patient request, and clinical judgment based on patient fatigue and noncompliance. She was able to ambulate 10ft to her room's door and back to her chair with fair tolerance. A: Problem's List 1. Pain 2. Weakness 3. Difficulty walking Short term goals: Patient will have reduced pain in order to transfer safely upon discharge. Patient will improve strength by 25% in order to complete ADL's independently upon discharge. assisted goals: Patient will ambulate over 50ft in order to move within her home safely and independently upon discharge. Patient will be seen my outpatient physical therapy if deemed necessary upon discharge. P: Treatment Plan: Patient will be seen twice Patient will begin ambulating more than 20 ft during next therapy session. She will benefit from skilled intervention to ensure safety at home after discharge. Initial Treatment: see objective Respectfully submitted, Tammy Valadez, SPT [place], [facility]
[2017-12-15] MEDS: FUROSEMIDE 40 MG TABLET PO SCH (11:49)
[2017-12-15] MEDS: POTASSIUM CHLORIDE 20 MEQ TAB PO SCH (11:49)
[2017-12-15] MEDS: LISINOPRIL 20 MG TABLET PO SCH (11:49)
--- NOTE | 2017-12-15 15:13 | PT.PROG ---
Progress Note Progress Note: S: Patient is 62 year old female. She states she has been sitting up too long and she is uncomfortable. She is eager to get her pain medication and would like it after therapy. O: Patient presents to therapy in seated slouched position. Patient's tubing was leaking, at which time nursing staff was informed and assisted for dressing change. Following dressing change, patient ambulated 80ft which is an improvement from this morning. She displays significant restrictions with shoulder ROM <60* flexion/abduction. A: Patient shows with significant fatigue during ambulation. Strengthening and balance interventions are deferred at this time due to fatigue and weakness. Patient will benefit from continued skilled intervention to improve strength and reduce pain. P: Patient will be seen twice a day during the week and once daily over the weekend until discharge. Balance and strengthening interventions will be included in future sessions as tolerated.
[2017-12-15] MEDS: Ropinirole Tab 1 MG TAB PO SCH (20:06)
[2017-12-15] MEDS: Simvastatin Tab 20 MG TAB PO SCH (20:07)
[2017-12-15] MEDS: Insulin Detemir 300unit/3ml Flexpen SUBCUT SCH (20:10)
[2017-12-16] MEDS: HYDROmorphone 2 MG/1 ML IVP PRN ×6 (01:58→22:18)
[2017-12-16] MEDS: HYDROmorphone Tab 4 MG TAB PO PRN ×5 (03:46→20:06)
[2017-12-16 04:32] LABS: BASOPHILS # (AUTO) 0.03 10*3/UL; BASOPHILS % (AUTO) 0.2 % (0-1); EOSINOPHILS # (AUTO) 0.55 10*3/UL; EOSINOPHILS % (AUTO) 4.6 % (0-8); Hemoglobin [HGB] 11.1 g/dL (12.0-16.0); LYMPHOCYTES # (AUTO) 2.66 10*3/uL; MEAN CORPUSCULAR HEMOGLOBIN 26.1 PG (27-31); MEAN CORPUSCULAR HGB CONC 31.7 g/dL (33-37); MEAN CORPUSCULAR VOLUME 82.2 FL (81-99); MEAN PLATELET VOLUME 8.6 FL (7.4-12.2); MONOCYTES # (AUTO) 0.81 10*3/UL (0.3-0.8); MONOCYTES % (AUTO) 6.7 % (5-15); NEUTROPHILS # (AUTO) 7.93 10*3/UL; NEUTROPHILS % (AUTO) 66.2 % (50-80); RED BLOOD COUNT 4.26 10^6/uL (4.20-5.40)
[2017-12-16 04:35] LABS: PLATELET MORPHOLOGY COMMENT NORMAL MORPHOLOGY (NORM); RBC MORPHOLOGY COMMENT NORMAL MORPHOLOGY (NORM); WBC MORPHOLOGY COMMENT NORMAL MORPHOLOGY (NORM)
[2017-12-16] MEDS: LEVOTHYROXINE 75 MCG TABLET PO SCH (05:35)
[2017-12-16] MEDS: LEVOTHYROXINE 100 MCG TABLET PO SCH (05:35)
[2017-12-16] MEDS: Insulin Lispro Flexpen 300 UNIT/3 ML INSULN.PEN SUBCUT SCH ×3 (06:53→17:26)
[2017-12-16] MEDS: PANTOPRAZOLE 40 MG TABLET PO SCH ×2 (06:59→16:00)
--- NOTE | 2017-12-16 09:11 | NEURO.PROG ---
Subjective Post Op Day: 2 Lipscomb Catheter: No Diet: Regular Ambulating: Yes Additional Details: Vivien is alert this morning, up in the chair. She complained of vague and moving areas of superficial pain, bilateral arms, but with good strength bilaterally. She also has areas she says are bruised and sore which appear to correlate with the NIMS monitoring sites. Her left breast is also sore secondary to pressure from her position during surgery. She is requesting pain medication regularly, but is motivated to shower and ambulate in coordination with pain medication. She had pulled out the more superficial drain during the night. One deep drain had no drainage for the prior shift, so it was pulled by her nurse this morning. The remaining deep drain has put out 70 ml in the past 8 hours, so will be continued. She continues on antibiotics as well. She requested Miralax be available for her to take daily, which she does at home to keep regular. I will make it available to her PRN. The plan for today is to continue to work with PT for mobility. She moves from chair to bed with minimal assist now. She understands that the goal will be to decrease her IV pain med and restart her oxycodone from preop. Objective : Data - Labs CBC and BMP: 12/16/17 04:01 12/15/17 04:30 - Vital Signs Vital Signs and I&O: Vital Signs - Last Taken Temperature 98.6 F 12/16/17 04:14 Pulse Rate 86 12/16/17 04:14 Respiratory Rate 20 12/16/17 04:14 Blood Pressure 156/69 12/16/17 04:14 Pulse Ox 93 12/16/17 04:14 Intake and Output (24hr x 4 totals) 12/14/17 12/15/17 12/16/17 12/17/17 05:59 05:59 05:59 05:59 Intake Total 1850 / 1850 5688 / 5688 2380 / 2380 900 / 900 Output Total 6870 / 6870 2340 / 2340 5705 / 5705 Balance -5020 / -5020 3348 / 3348 -3325 / -3325 900 / 900
[2017-12-16] MEDS: metFORMIN 500 MG TABLET PO SCH ×2 (09:18→20:07)
[2017-12-16] MEDS: GABAPENTIN 300 MG CAPSULE PO SCH ×2 (09:18→12:02)
[2017-12-16] MEDS: RISPERIDONE 1 MG PO SCH ×2 (09:18→20:06)
[2017-12-16] MEDS: DULOXETINE 60 MG CAPSULE PO SCH ×2 (09:18→20:06)
--- NOTE | 2017-12-16 10:28 | OT.PROG ---
Progress Note Progress Note: S: pt stated she was ready fro a shower and that her pain was 7/10. O: tx consisted of functional ambulation with FWW and CGA for safety x 30' x2, shower tasks of washing hair and anterior body independently with set up and MAX A for posterior body. pt completed donning underwear and shorts independently and MOD A for donning of hospital gown. pt combed her hair independently but needed MAX A to pull it up into a hair tie. A: pt tolerated session really well and followed her surgical precautions during tx. pt transferred from sitting to standing multiple times during showering with use of grab bars. pt stated her pain was a 9/10 after showering task. P: continue progressing with ADL performance and independence. continue POC
[2017-12-16] MEDS: POTASSIUM CHLORIDE 20 MEQ TAB PO SCH (12:02)
[2017-12-16] MEDS: FUROSEMIDE 40 MG TABLET PO SCH (12:02)
[2017-12-16] MEDS: LISINOPRIL 20 MG TABLET PO SCH (12:02)
--- NOTE | 2017-12-16 13:25 | PDOC(PROG) ---
Interval History: Patient is doing well postop she says that her by mouth pills for pain or working a lot better. No other complaint no chest pain nausea or vomiting Objective : Data - Labs CBC and BMP: 12/16/17 04:01 12/15/17 04:30 Objective : Exam - General General Appearance: Cooperative - Respiratory Respiratory Exam: Clear to Auscultation - Bilaterally, Breathing Non Labored, Normal To Percussion, Normal to Percussion and Palpation - Cardiovascular Cardiovascular Exam: RRR, No Murmur, No Clicks, No Gallops, No Rubs, PMI Non- Displaced - GI/Abdominal GI/Abdominal Exam: Normal Bowel Sounds, Non Tender, Non Distended, Soft, No Masses, No Hepatomegaly, No Splenomegaly, No Organomegaly Assessment and Plan - Patient Problems (1) Diabetes mellitus, type 2 Current Visit: No Status: Chronic Comment: Stable continue current medications sugars 125 today continue Lantus at 15 units (2) Benign hypertension Current Visit: No Status: Chronic Comment: Stable (3) Hyperlipidemia Current Visit: No Status: Chronic (4) Hypothyroidism Current Visit: No Status: Chronic Comment: Stable (5) S/P neck surgery, follow-up exam Current Visit: Yes Status: Acute Comment: Defer to Dr. Blackwell for pain management. An outpatient care Code(s): Z09 - Encounter for follow-up examination after completed treatment for conditions other than malignant neoplasm (6) Postoperative anemia due to acute blood loss Current Visit: Yes Status: Acute Code(s): D62 - Acute posthemorrhagic anemia
[2017-12-16] MEDS: POLYETHYLENE GLYCOL 3350 17 GM POWDER PO PRN (13:57)
--- NOTE | 2017-12-16 14:12 | PT.PROG ---
Progress Note Progress Note: S: Patient reports her shoulders feel as if they are burning. She states she is tired, but doing better. O: Patient was able to ambulate 100 ft from her room to the elevator. She completed sit to stands with good tolerance and form, though she became fatigued after 4 repetitions. She stepped up on to 6" step with hand-held assistance. A: Patient is making slow progress with ambulation and sit to stands. Patient will benefit from skilled therapy to improve function prior to discharge. P: Patient will be seen twice a day during the week and once over the weekend until discharge. Patient will continue working on functional sit to stands, ambulation, and stairs to improve function at home.
--- NOTE | 2017-12-16 15:28 | OT AM DAY ---
Diagnosis : Hardware Removal From Cervical Spine AM - Occupational Therapy S: The patient reports she is very sore. She states her chest hurts a lot from her cervical fusion. O: The patient was able to log roll with min assist to sit edge of bed. While sitting edge of bed we worked on hygiene tasks such as washing face and combing hair. She needed min to mod assist with both of these activities. She was able to bring her leg up to her knee today; however, she did not feel like getting dressed. We did a couple sit to stands with her neck brace on. With oxygen and just walking to the sink, her saturation dropped down to 88%. A: The patient would continue to benefit from occupational therapy. P: Continue seeing patient BID during the week and one time per day over the weekend for upper extremity strengthening, ADLs, and overall functional mobility. MTDD
--- NOTE | 2017-12-16 15:47 | PT.PROG ---
Progress Note Progress Note: S: Patient states her arms are still sore, but she is ready for therapy. O: Patient ambulated 150ft around nurses station. She completed LE exercises in a seated position as tolerated. She was able to complete LAQ and ankle ABC's in prolonged full extension with great tolerance. Patient progressed with step ups via intensity and repetitions. She insisted on skipping ambulation with stairs this afternoon. A: Patient is progressing well, and making improvements with her endurance and strength. She is more motivated during therapy. Patient will continue to benefit from skilled intervention to work towards improved function prior to discharge. P: Patient will continue to work on functional strengthening and ambulation. Patient will be seen twice a day during the week and once daily over the weekends until discharge.
[2017-12-16] MEDS: DIAZEPAM 10 MG TABLET PO PRN (16:06)
--- NOTE | 2017-12-16 16:38 | OT.PROG ---
Progress Note Progress Note: Occupational Therapy S: Pt. reports that she is feeling well this afternoon with some discomfort in her shoulders. O: Pt. was seen at 1515 for skilled OT session with a focus on functional activities. Pt. completed bilateral UE AROM below 90 degrees within a pain free range X 5 minutes for shoulder, elbow, hand and wrist with no resistance. Pt. also completed functional bed mobility tasks to include moving from supine to EOB and vice versa while performing log rolling technique x 4 with SBA only. A: Pt. did well with log rolling and required minimal verbal cues. Continue to progress as appropriate. P: Continue POC. ERIN Bolden/Morales
[2017-12-16] MEDS: Simvastatin Tab 20 MG TAB PO SCH (20:07)
[2017-12-16] MEDS: Ropinirole Tab 1 MG TAB PO SCH (20:07)
[2017-12-16] MEDS: Insulin Detemir 300unit/3ml Flexpen SUBCUT SCH (21:23)
[2017-12-17] MEDS: HYDROmorphone Tab 4 MG TAB PO PRN ×2 (01:25→05:24)
[2017-12-17] MEDS: HYDROmorphone 2 MG/1 ML IVP PRN ×2 (02:06→06:07)
[2017-12-17] MEDS: LEVOTHYROXINE 75 MCG TABLET PO SCH (05:24)
[2017-12-17] MEDS: LEVOTHYROXINE 100 MCG TABLET PO SCH (05:24)
[2017-12-17 05:39] LABS: BASOPHILS # (AUTO) 0.05 10*3/UL; BASOPHILS % (AUTO) 0.4 % (0-1); Hematocrit [HCT] 36.6 % (37.0-47.0); Hemoglobin [HGB] 11.5 g/dL (12.0-16.0); MEAN CORPUSCULAR HEMOGLOBIN 25.9 PG (27-31); MEAN CORPUSCULAR HGB CONC 31.4 g/dL (33-37); MEAN CORPUSCULAR VOLUME 82.4 FL (81-99); MEAN PLATELET VOLUME 8.5 FL (7.4-12.2); MONOCYTES % (AUTO) 5.2 % (5-15); NEUTROPHILS # (AUTO) 8.26 10*3/UL; NEUTROPHILS % (AUTO) 61.9 % (50-80); RED BLOOD COUNT 4.44 10^6/uL (4.20-5.40)
[2017-12-17 05:42] LABS: PLATELET MORPHOLOGY COMMENT NORMAL MORPHOLOGY (NORM); RBC MORPHOLOGY COMMENT NORMAL MORPHOLOGY (NORM); WBC MORPHOLOGY COMMENT NORMAL MORPHOLOGY (NORM)
[2017-12-17 06:06] LABS: BLOOD UREA NITROGEN 7 mg/dL (7-22); SERUM ALBUMIN 3.6 g/dL (3.5-4.8)
[2017-12-17] MEDS: DIAZEPAM 10 MG TABLET PO PRN ×2 (06:55→18:42)
[2017-12-17] MEDS: PANTOPRAZOLE 40 MG TABLET PO SCH ×2 (06:56→16:09)
[2017-12-17] MEDS: Insulin Lispro Flexpen 300 UNIT/3 ML INSULN.PEN SUBCUT SCH ×3 (07:06→16:16)
--- NOTE | 2017-12-17 08:07 | NEURO.PROG ---
Subjective Post Op Day: 3 Lipscomb Catheter: No Flatus: Yes Diet: Regular Ambulating: Yes Additional Details: Vivien continues to complain of burning pain in the muscles of her shoulders, but is otherwise feeling better. She also complained of a headache and said that in general she doesn't think the Dilaudid works as well for her as the oxycodone she was on before surgery. She has good strength bilaterally. She ambulated very well yesterday and does well being up in the room with minimal assist. Plan will be to switch her to oxycodone and try zanaflex for her muscle spasm since the valium hasn't seemed to help Will also add acetaminophen for her headache Discontinue drain Continue ambulation. Objective : Data - Labs CBC and BMP: 12/17/17 05:32 12/17/17 05:32 - Vital Signs Vital Signs and I&O: Vital Signs - Last Taken Temperature 97.9 F 12/17/17 05:34 Pulse Rate 84 12/17/17 05:34 Respiratory Rate 24 12/17/17 05:34 Blood Pressure 140/67 12/17/17 05:34 Pulse Ox 93 12/17/17 05:34 Intake and Output (24hr x 4 totals) 12/15/17 12/16/17 12/17/17 12/18/17 05:59 05:59 05:59 05:59 Intake Total 5688 / 5688 2380 / 2380 3080 / 3080 Output Total 2340 / 2340 5705 / 5705 3590 / 3590 Balance 3348 / 3348 -3325 / -3325 -510 / -510
[2017-12-17] MEDS: oxyCODONE IR Tab 15 MG TAB PO SCH ×5 (08:37→23:59)
[2017-12-17] MEDS: oxyCODONE IR Tab 5 MG TAB PO SCH ×5 (08:37→23:59)
[2017-12-17] MEDS: metFORMIN 500 MG TABLET PO SCH ×2 (08:38→20:15)
[2017-12-17] MEDS: DULOXETINE 60 MG CAPSULE PO SCH ×2 (08:38→20:14)
[2017-12-17] MEDS: DOCUSATE 100 MG CAPSULE PO PRN ×2 (08:38→16:16)
[2017-12-17] MEDS: GABAPENTIN 300 MG CAPSULE PO SCH ×2 (08:38→12:56)
[2017-12-17] MEDS: RISPERIDONE 1 MG PO SCH ×2 (08:39→20:14)
[2017-12-17] MEDS: POLYETHYLENE GLYCOL 3350 17 GM POWDER PO PRN (08:39)
[2017-12-17] MEDS: tiZANidine Tab 4 MG TAB PO PRN ×3 (09:46→21:53)
[2017-12-17] MEDS: LORazepam 1 MG TABLET PO PRN ×2 (10:27→20:15)
--- NOTE | 2017-12-17 10:38 | PT.PROG ---
Progress Note Progress Note: s. The pt was in pain and not feeling well this morning. Nursing asked us to come back. When we came back she reported she was spent and didn't feel well enough for regular therapy but was agreeable to ambulating and bed mobility. She c/o shoulder and scapula pain that the nursing staff was trying to take care of. O. pt ambulated around nursing station 125 feet with FWW, Cervical collar was in place. CGA. She was able to get into and out of bed Independent. A. pt was not feeling well at all today and was not up to aggressive therapy. She ambulated and performed bed mobility. Mobility was independent but she required verbal cuing to get further away from the edge of the bed, which she was able to do independently. She asked for pillows between her knees, and 2 under her arm as she said it relieved the burning in her scapula area. P. Cont POC
[2017-12-17] MEDS: ACETAMINOPHEN 325 MG TABLET PO PRN ×2 (11:52→18:26)
--- NOTE | 2017-12-17 12:05 | PDOC(PROG) ---
Interval History: Doing well just took a shower neurosurgery team is managing her pain she is now on oral meds no chest pain nausea or vomiting Objective : Data - Labs CBC and BMP: 12/17/17 05:32 12/17/17 05:32 Objective : Exam - Respiratory Respiratory Exam: Clear to Auscultation - Bilaterally, Breathing Non Labored, Normal To Percussion, Normal to Percussion and Palpation - Cardiovascular Cardiovascular Exam: RRR, No Murmur, No Clicks, No Gallops, No Rubs, PMI Non- Displaced - GI/Abdominal GI/Abdominal Exam: Normal Bowel Sounds, Non Tender, Non Distended, Soft, No Masses, No Hepatomegaly, No Splenomegaly, No Organomegaly Assessment and Plan - Patient Problems (1) Diabetes mellitus, type 2 Current Visit: No Status: Chronic Comment: Continue same meds sugars this morning 160 doing well (2) Benign hypertension Current Visit: No Status: Chronic Comment: Stable continue same medication (3) Hyperlipidemia Current Visit: No Status: Chronic Comment: Stable continue same medication (4) Hypothyroidism Current Visit: No Status: Chronic Comment: Continue same medication (5) S/P neck surgery, follow-up exam Current Visit: Yes Status: Acute Comment: Deferred to neurosurgery team for postop care and pain control Code(s): Z09 - Encounter for follow-up examination after completed treatment for conditions other than malignant neoplasm (6) Postoperative anemia due to acute blood loss Current Visit: Yes Status: Acute Code(s): D62 - Acute posthemorrhagic anemia
[2017-12-17] MEDS: POTASSIUM CHLORIDE 20 MEQ TAB PO SCH (12:56)
[2017-12-17] MEDS: LISINOPRIL 20 MG TABLET PO SCH (12:56)
[2017-12-17] MEDS: FUROSEMIDE 40 MG TABLET PO SCH (12:56)
[2017-12-17] MEDS: Ropinirole Tab 1 MG TAB PO SCH (20:13)
[2017-12-17] MEDS: Simvastatin Tab 20 MG TAB PO SCH (20:14)
[2017-12-17] MEDS: Insulin Detemir 300unit/3ml Flexpen SUBCUT SCH (20:15)
[2017-12-18] MEDS: DIAZEPAM 10 MG TABLET PO PRN ×2 (02:26→13:51)
[2017-12-18] MEDS: oxyCODONE IR Tab 15 MG TAB PO SCH ×4 (04:05→13:51)
[2017-12-18] MEDS: oxyCODONE IR Tab 5 MG TAB PO SCH ×4 (04:05→13:51)
[2017-12-18] MEDS: tiZANidine Tab 4 MG TAB PO PRN ×2 (04:06→09:43)
[2017-12-18] MEDS: LEVOTHYROXINE 75 MCG TABLET PO SCH (05:19)
[2017-12-18] MEDS: LEVOTHYROXINE 100 MCG TABLET PO SCH (05:20)
[2017-12-18] MEDS: ACETAMINOPHEN 325 MG TABLET PO PRN ×3 (05:45→11:20)
--- NOTE | 2017-12-18 07:22 | NEURO.PROG ---
Subjective Post Op Day: 4 Pain Management: PO Flatus: Yes Diet: Regular Ambulating: Yes Additional Details: Vivien continues to be somewhat restless, but does not complain of significant surgical pain. She continues to have good strength and mobility. I told her she could still have valium for her anxiety while in the hospital and that she could use Tylenol, up to the 3 Gms to replace the Ibuprofen she used at home. I explained why she cannot use NSAIDs after her bone fusion and she seemed to understand. She also asked if she could use her bedtime sleeping aid Zolpidem she was on at home. She had a bowel movement yestarday and has no GI complaints. Continue to ambulate. Add Zolpidem. She is ready for home from a neuro surgery standpoint, but I believe she does not feel ready to go. Discharge plan per hospitalist. Objective : Data - Labs CBC and BMP: 12/17/17 05:32 12/17/17 05:32 - Vital Signs Vital Signs and I&O: Vital Signs - Last Taken Temperature 97.7 F 12/18/17 06:15 Pulse Rate 82 12/18/17 04:09 Respiratory Rate 20 12/18/17 04:09 Blood Pressure 151/75 12/18/17 04:09 Pulse Ox 96 12/18/17 04:09 Intake and Output (24hr x 4 totals) 12/16/17 12/17/17 12/18/17 12/19/17 05:59 05:59 05:59 05:59 Intake Total 2380 / 2380 3080 / 3080 1600 / 1600 Output Total 5705 / 5705 3590 / 3590 2500 / 2500 Balance -3325 / -3325 -510 / -510 -900 / -900
[2017-12-18] MEDS ORDERED: ZOLPIDEM 10 MG TABLET PO PRN (07:23)
[2017-12-18 07:27] VITALS: RESP 24
[2017-12-18] MEDS: DOCUSATE 100 MG CAPSULE PO PRN (07:34)
[2017-12-18] MEDS: PANTOPRAZOLE 40 MG TABLET PO SCH (07:34)
[2017-12-18] MEDS: Insulin Lispro Flexpen 300 UNIT/3 ML INSULN.PEN SUBCUT SCH ×2 (07:37→11:21)
[2017-12-18] MEDS: GABAPENTIN 300 MG CAPSULE PO SCH ×2 (09:43→11:20)
[2017-12-18] MEDS: DULOXETINE 60 MG CAPSULE PO SCH (09:43)
[2017-12-18] MEDS: POLYETHYLENE GLYCOL 3350 17 GM POWDER PO PRN (09:43)
[2017-12-18] MEDS: metFORMIN 500 MG TABLET PO SCH (09:43)
--- NOTE | 2017-12-18 09:49 | PT.PROG ---
Progress Note Progress Note: S. pt was very tired and had a bad night and couldn't sleep, she wanted to eat and take a shower. She agreed to working upstairs for a while. O. pt ambulated 200 feet, performed sit to stands, seated Clams, LAQ, Ankle alphabet. She was made comfortable with nurse call light and nursing was bring her breakfast. A. pt is uncomfortable and has not been sleeping real well. She did not feel up to coming down. P. Cont POC
[2017-12-18] MEDS: RISPERIDONE 1 MG PO SCH (10:09)
[2017-12-18 11:09] VITALS: BP 138/62; TEMP 99; O2SAT 91
[2017-12-18] MEDS: HYDROmorphone Tab 4 MG TAB PO PRN (11:20)
[2017-12-18] MEDS: LISINOPRIL 20 MG TABLET PO SCH (11:21)
[2017-12-18] MEDS: FUROSEMIDE 40 MG TABLET PO SCH (11:21)
[2017-12-18] MEDS: LORazepam 1 MG TABLET PO PRN (11:27)
[2017-12-18] MEDS: POTASSIUM CHLORIDE 20 MEQ TAB PO SCH (12:03)
--- NOTE | 2017-12-18 12:46 | PDOC(PROG) ---
Interval History: Patient seen as a no issues no complaints no nausea no vomiting no chest pain Objective : Data - Labs CBC and BMP: 12/17/17 05:32 12/17/17 05:32 Objective : Exam - Respiratory Respiratory Exam: Clear to Auscultation - Bilaterally, Breathing Non Labored, Normal To Percussion, Normal to Percussion and Palpation - Cardiovascular Cardiovascular Exam: RRR, No Murmur, No Clicks, No Gallops, No Rubs, PMI Non- Displaced - GI/Abdominal GI/Abdominal Exam: Normal Bowel Sounds, Non Tender, Non Distended, Soft, No Masses, No Hepatomegaly, No Splenomegaly, No Organomegaly Assessment and Plan - Patient Problems (1) Diabetes mellitus, type 2 Current Visit: No Status: Chronic Comment: Patient will be discharged on 15 units of Levemir instead of her usual 20 sugars have been doing great here in the hospital with that dose I also instructed her to follow-up with her primary care physician mildly elevated white count with no left shift most likely due to steroids from surgery (2) Benign hypertension Current Visit: No Status: Chronic (3) Hyperlipidemia Current Visit: No Status: Chronic (4) Hypothyroidism Current Visit: No Status: Chronic (5) S/P neck surgery, follow-up exam Current Visit: Yes Status: Acute Comment: Neurosurgery no stated the patient ready to be discharged. I did call Dr. Blackwell to find out if he had any specific postop instructions for her since it they were not in the note he said to wear the collar out of 1 out of bed also to follow up with him and call his office in the morning he also stated no change to her home medications in regards to her pain meds nurse present on this conversation was had on the phone Code(s): Z09 - Encounter for follow-up examination after completed treatment for conditions other than malignant neoplasm (6) Postoperative anemia due to acute blood loss Current Visit: Yes Status: Acute Code(s): D62 - Acute posthemorrhagic anemia
[2017-12-18] MEDS: HYDROmorphone 2 MG/1 ML IVP PRN (13:51)
--- NOTE | 2017-12-23 09:30 | NEURO.DC ---
Discharge Summary Admit Date: 12/12/17 Discharge Date: 12/18/17 Admitting Diagnosis: Neck pain, Failed anterior/cervical fusion, Failed Revision Discharge Diagnosis: Revision Anterior/cervical fusion, Posteriolateral fusion. Primary Surgery and Date: 12/12/2017 - See Dr. Blackwell's Operative Report. - See Dr. Blackwell's Operative Report Hospital Course: Ms Gurjit Mary was admitted to [facility] to undergo the the above noted procedures, which were spaced apart and accomplished on the same admission for continuity of care. Following both procedures she was taken to the recovery room in stable condition and progressed to Med/Surg. Her post op course went well, with good progress with pain management and physical therapy. At the time of discharge she was ambulating and accomplishing ADL's with minimal assistance. She was given post op instructions, to include activity, and wound care. Discharge Medications Incontinence Pad,Liner,Disp [Poise Pads] 1 ea MC PRN #1 box 05/08/12 [History Confirmed 12/12/17] Pen Needle, Diabetic [Novofine 32] 1 ea MC 5XD #150 unit 11/06/15 [Rx Confirmed 12/12/17] Lancets [Onetouch Lancets] 1 ea MC BID #100 ea 11/27/15 [Rx Confirmed 12/12/17] Estradiol [Vagifem] 10 mcg VAGINAL 2XW #3 box 01/02/16 [Rx Confirmed 12/12/17] Triamcinolone Acetonide 1 applic TP BID PRN #15 gm 05/06/16 [History Confirmed 12/12/17] Bipap 1 unit #1 unit 10/12/16 [History Confirmed 12/09/17] Meloxicam 1 tab PO QHS tab 10/12/16 [History] sumatriptan 100 mg tablet 100 mg PO QDAY PRN #6 tab 12/31/16 [Rx Confirmed 12/12] blood sugar diagnostic strips 1 strip MISCELLANEOUS TID #100 strip 02/01/17 [Rx Confirmed 12/12/17] meclizine 25 mg tablet 25 mg PO QID PRN #30 tab 03/21/17 [Rx Confirmed 12/12/17] risperidone 0.5 mg tablet 0.5 mg PO BID #60 tab 03/22/17 [Rx Confirmed 12/12/17] insulin aspart U-100 100 unit/mL subcutaneous pen 3 - 16 unit SUBCUT ACHS #15 ml 05/24/17 [Rx Confirmed 12/12/17] gabapentin 300 mg capsule 300 mg PO QID #480 cap 07/05/17 [Rx Confirmed 12/12/17 ] linaclotide 290 mcg capsule 290 mcg PO QDAY 07/05/17 [History Confirmed 12/12/17 ] duloxetine 60 mg capsule,delayed release 60 mg PO BID #180 cap 07/06/17 [Rx Confirmed 12/12/17] pantoprazole 40 mg tablet,delayed release 40 mg PO BID #180 tab 07/26/17 [Rx Confirmed 12/12/17] metformin 1,000 mg tablet 1,000 mg PO BID #180 tab 08/23/17 [Rx Confirmed ] simvastatin 20 mg tablet 20 mg PO QHS #90 tab 08/23/17 [Rx Confirmed 12/12/17] ropinirole ER 2 mg tablet,extended release 24 hr 2 mg PO QHS #90 tab 09/02/17 [ Rx Confirmed 12/12/17] Svpply Ultra2 kit 1 ea MISCELLANEOUS DIRECTED #1 unit NS 11/03/17 [Rx Confirmed 12/12/17] levothyroxine 175 mcg tablet 175 mcg PO QDAY #90 tab 11/18/17 [Rx Confirmed ] morphine ER 60 mg tablet,extended release 60 mg PO Q12H #60 tab 11/29/17 [Rx Confirmed 12/12/17] oxycodone 10 mg tablet 10 mg PO Q4-6H PRN 11/29/17 [History Confirmed 12/12/17] Clonazepam 0.5 mg PO BID@0900,1900 12/12/17 [History Confirmed 12/12/17] Cyclobenzaprine HCl 5 mg PO TID@0900,1200,2100 12/12/17 [History Confirmed 12/12] Furosemide 40 mg PO DAILY@1200 12/12/17 [History Confirmed 12/12/17] Lisinopril 20 mg PO DAILY@1200 12/12/17 [History Confirmed 12/12/17] Loratadine [Allergy] 10 mg PO DAILY@1900 12/12/17 [History Confirmed 12/12/17] Oxybutynin Chloride [Oxybutynin Chloride ER] 15 mg PO BEDTIME 12/12/17 [History Confirmed 12/12/17] Potassium Chloride 20 meq PO DAILY@1200 12/12/17 [History Confirmed 12/12/17] zolpidem 5 mg tablet 5 mg PO QDAY #90 tab 12/15/17 [Rx] Insulin Detemir Flexpen Inj [Levemir Flexpen Inj] 15 unit SUBCUT BEDTIME insuln.pen 12/18/17 [Rx] linagliptin 5 mg tablet 5 mg PO QDAY #30 tab 12/20/17 [Rx] Follow-Up: Roger Carpenter (Primary Care Provider) - as needed Jasper Blackwell - Two weeks Exam - Vitals Vital Signs: Vital Signs Temperature 99 F Temperature Source Oral Pulse Rate [Apical] 88 Pulse Rate [Pulse Oximeter] 85 Pulse Rate 81 Respiratory Rate 24 Blood Pressure [Right Radial 129/51 Artery] Blood Pressure [Right Arm] 140/67 Blood Pressure [Left Arm] 138/62 Blood Pressure [Right Calf] 192/72 Blood Pressure 167/92 Pulse Ox 91 Oxygen Flow Rate 2 Oxygen Delivery Method Room Air Height 5 ft 4 in Weight 100.607 kg
== END 2017-12-18 13:55 | disposition home or self-care (01) | DRG 460 ==
LOC: OPS 05:52 → MED/SURG 15:28 → OPS 12-14 06:10 → MED/SURG 12-14 16:32
PROVIDERS: ADMIT Neurological Surgery; ATTEND Neurological Surgery